=== PATIENT | male | born 1975 | race Hispanic/Latino ===

== ENCOUNTER 2018-07-14 09:06 | Emergency (ER) | payer BC ==
[~2018-07-14] VITALS: Ht 177.8 cm; Wt 104.3 kg
--- OUTSIDE RECORDS SUMMARY | 2018-07-14 09:10 | XMS REPORT | Summary of Care ---
Author Author [facility] Outpatient Imaging [facility] Outpatient [facility] Address Unknown Phone Unavailable Encounter [facility] [employer](FIN) [id number] Date(s): 05/13/16 - 05/13/16 [facility] Outpatient Imaging [address] [phone] Discharge Disposition: Home or Self Care Attending Physician: Radha Navas MD Vital Signs No data available for this section Problem List Condition Effective Dates Status Health Status Informant Morbid Active obesity(Confirmed) Sleep Active apnea(Confirmed) Allergies, Adverse Reactions, Alerts Substance Reaction Severity Status NKDA Active Medications No data available for this section Results No data available for this section Immunizations No data available for this section Procedures Procedure Date Related Diagnosis Body Site Tonsillectomy Social History Social History Type Response Alcohol Current, Frequency: 1-2 times per month. Previous treatment: None. Alcohol use interferes with work or home: No. Drinks more than intended: No. Others hurt by drinking: No. Ready to change: No. Household alcohol concerns: No. Smoking Status Never smoker; Exposure to Tobacco Smoke None; Cigarette Smoking Last 365 Days No; Reg Smoking Cessation Counseling No Assessment and Plan No data available for this section
--- OUTSIDE RECORDS SUMMARY | 2018-07-14 09:10 | XMS REPORT | Summary of Care ---
Author Author [facility] Organization [facility] Address Unknown Phone Unavailable Encounter THERESA Clark(DEVEN) [id number] Date(s): 02/07/15 - 02/07/[address] [address]- Discharge Disposition: Home Attending Physician: Jose Luis Lau MD Admitting Physician: Jose Luis Lau MD Referring Physician: Jose Luis Lau MD Vital Signs Most recent to 1 oldest [Reference Range]: Height 175.26 cm (02/07/15 1:02 PM) Most recent to 1 oldest [Reference Range]: Weight 186.364 kg (02/07/15 1:02 PM) Most recent to 1 oldest [Reference Range]: Body Mass Index 60.67 m2 (02/07/15 1:02 PM) Problem List No data available for this section Allergies, Adverse Reactions, Alerts Substance Reaction Severity Status NKDA Active Medications furosemide 40 mg oral tablet 40 mg=1 tab, PO, Daily, 0 Refill(s) Start Date: 02/07/15 Status: Ordered metFORMIN 500 mg, PO, Daily, 0 Refill(s) Start Date: 02/07/15 Status: Ordered potassium chloride 20 mEq oral tablet, extended release 20 mEq=1 tab, PO, Daily, 0 Refill(s) Start Date: 02/07/15 Status: Ordered Results ELECTROLYTES Most recent to 1 oldest [Reference Range]: POC Sodium [135-145 139 mEq/L mEq/L] (02/07/15 1:29 PM) POC Potassium 3.5 mEq/L [3.5-5.1 mEq/L] (02/07/15 1:29 PM) POC Chloride [95-109 91 mEq/L mEq/L] *LOW* (02/07/15 1:29 PM) POC Carbon Dioxide 34 mEq/dL [24-32 mEq/dL] *HI* (02/07/15 1:29 PM) POC AGAP [10.0-20.0 19.0 mEq/L mEq/L] (02/07/15 1:29 PM) CHEM PANEL Most recent to 1 oldest [Reference Range]: eGFR 128 mL/min/1.73m2 1 *NA* (02/07/15 1:29 PM) POC Creatinine 0.6 mg/dL [0.5-1.4 mg/dL] (02/07/15 1:29 PM) POC BUN [7-22 mg/dL] 9 mg/dL (02/07/15 1:29 PM) POC Glucose [70-99 83 mg/dL mg/dL] (02/07/15 1:29 PM) POC Ion Ca 1.20 mMol/L [1.05-1.25 mMol/L] (02/07/15 1:29 PM) 1Result Comment: The eGFR is calculated using the CKD-EPI formula. In most young, healthy individuals the eGFR will be >90 mL/min/1.73m2. The eGFR declines with age. An eGFR of 60-89 may be normal in some populations, particularly the elderly, for whom the CKD-EPI formula has not been extensively validated. Use of the eGFR is not recommended in the following populations: Individuals with unstable creatinine concentrations, including patients and those with serious co-morbid conditions. Patients with extremes in muscle mass or diet. The data above are obtained from the National Kidney Disease Education Program ( NKDEP) which additionally recommends that when the eGFR is used in patients with extremes of body mass index for purposes of drug dosing, the eGFR should be mul tiplied by the estimated BMI. HEMATOLOGY Most recent to 1 oldest [Reference Range]: POC Hemoglobin 19.7 g/dL [14.0-18.0 g/dL] *HI* (02/07/15 1:29 PM) POC Hematocrit 58.0 % [42.0-54.0 %] *HI* (02/07/15 1:29 PM) Immunizations No data available for this section Procedures No data available for this section Social History No data available for this section Assessment and Plan No data available for this section
--- OUTSIDE RECORDS SUMMARY | 2018-07-14 09:10 | XMS REPORT | Summary of Care ---
Author Author [facility] Organization [facility] Address Unknown Phone Unavailable Encounter THERESA Clark(DEVEN) [id number] Date(s): 05/13/16 - 05/13/[address] [address]- Discharge Disposition: Home or Self Care Attending Physician: Radha Navas MD Referring Physician: Radha Navas MD Vital Signs Most recent to 1 oldest [Reference Range]: Height 175.26 cm (05/13/16 2:10 PM) Weight 136.364 kg (05/13/16 2:10 PM) Body Mass Index 44.4 m2 (05/13/16 2:10 PM) Problem List Condition Effective Dates Status Health [...]
--- OUTSIDE RECORDS SUMMARY | 2018-07-14 09:10 | XMS REPORT | Summary of Care ---
Author Author [facility] Organization [facility] Address Unknown Phone Unavailable Encounter [facility] [employer](DEVEN) [id number] Date(s): 05/13/16 - 05/13/[address] [address]- Discharge Disposition: Home or Self Care Attending Physician: Radha Navas MD Admitting Physician: Radha Navas MD Vital Signs No [...]
--- OUTSIDE RECORDS SUMMARY | 2018-07-14 09:10 | XMS REPORT | Summary of Care ---
Author Author [facility] Organization [facility] Address Unknown Phone Unavailable Encounter THERESA Clark(DEVEN) [id number] Date(s): 03/18/16 - 03/19/[address] [address]- Discharge Disposition: Home or Self Care Attending Physician: Jose Luis Lau MD Admitting Physician: Jose Luis Lau MD Referring Physician: Jose Luis Lau MD Vital Signs 1 2 3 Most recent to oldest [Reference Range]: 172.72 cm (03/13/16 9:00 AM) Height 98.0 DegF (03/19/16 3:18 PM) 98.2 DegF (03/19/16 11:12 AM) 98.1 DegF (03/19/16 7:09 AM) Temperature Oral [96.4-99.1 DegF] 103/63 mmHg (03/19/16 3:18 PM) 98/60 mmHg (03/19/16 11:12 AM) 117/70 mmHg (03/19/16 7:09 AM) Blood Pressure [90-140/60-90 mmHg] 18 BRMIN (03/19/16 3:18 PM) 18 BRMIN (03/19/16 11:12 AM) 18 BRMIN (03/19/16 7:09 AM) Respiratory Rate [14-20 BRMIN] 66 bpm (03/19/16 3:18 PM) 71 bpm (03/19/16 11:12 AM) 71 bpm (03/19/16 7:09 AM) Peripheral Pulse Rate [60-100 bpm] 155.455 kg (03/13/16 9:00 AM) Weight 52.11 m2 (03/13/16 9:00 AM) Body Mass Index Problem List Condition Effective Dates Status Health Status Informant Morbid Active obesity(Confirmed) Sleep Active apnea(Confirmed) Allergies, Adverse Reactions, Alerts Substance Reaction Severity Status NKDA Active Medications acetaminophen (ANES) (ANES) Route: IV, Drug form: INJ, Start date: 03/18/16 11:44:00 CDT, Stop date: 6 12:44:00 CDT Start Date: 03/18/16 Stop Date: 03/18/16 Status: Completed Ancef 3 gm, 100 mL, Route: IVPB, Drug form: INJ, ONCALL, Start date: 03/17/16 22:00:00 CDT, Duration: 22 hr, Stop date: 03/18/16 19:59:00 CDT Notes: Same as: Ancef Start Date: 03/17/16 Stop Date: 03/18/16 Status: Completed ANES flumazenil 0.2 mg, 2 mL, Route: IVP, Drug form: INJ, PRN, Dosing Weight 155.455, kg, PRN Be nzodiazepine Reversal, Initial dose, Start date: 03/18/16 11:47:00 CDT, Duration : 30 day, Stop date: 04/17/16 10:46:00 UNDERCUTTER Notes: (Same as: Romazicon) Start Date: 03/18/16 Stop Date: 03/18/16 Status: Discontinued ANES hydrALAZINE 10 mg, 0.5 mL, Route: IVP, Drug form: INJ, Q20Min, Dosing Weight 155.455, kg, PA N Elevated BP, Start date: 03/18/16 11:47:00 CDT, Duration: 2 doses or times, St op date: Limited # of times Notes: (Same as: Apresoline)Push over 5 minutes Start Date: 03/18/16 Stop Date: 03/18/16 Status: Discontinued ANES HYDROmorphone 0.5 mg, 0.25 mL, Route: IVP, Drug form: INJ, Q5Min, Dosing Weight 155.455, kg, P RN Pain Score 7-10, Start date: 03/18/16 11:47:00 CDT, Duration: 4 doses or time s, Stop date: Limited # of times Notes: (Same as: Dilaudid) Start Date: 03/18/16 Stop Date: 03/18/16 Status: Completed ANES morphine Sulfate 4 mg, 1 mL, Route: IVP, Drug form: INJ, Q5Min, Dosing Weight 155.455, kg, PRN Pa in Score 7-10, Start date: 03/18/16 11:47:00 CDT, Duration: 3 doses or times, St op date: Limited # of times Notes: (Same as:MORPhine Sulfate) Start Date: 03/18/16 Stop Date: 03/18/16 Status: Discontinued ANES morphine Sulfate 2 mg, 1 mL, Route: IVP, Drug form: INJ, Q5Min, Dosing Weight 155.455, kg, PRN Pa in Score 4-6, Start date: 03/18/16 11:47:00 CDT, Duration: 5 doses or times, Sto p date: Limited # of times Notes: (Same as:MORPhine Sulfate) Start Date: 03/18/16 Stop Date: 03/18/16 Status: Discontinued ANES naloxone 0.4 mg, 1 mL, Route: IVP, Drug form: INJ, Q2MIN, Dosing Weight 155.455, kg, PRN Narcotic Reversal, Start date: 03/18/16 11:47:00 CDT, Duration: 8 doses or times , Stop date: Limited # of times Notes: Same as Narcan Start Date: 03/18/16 Stop Date: 03/18/16 Status: Discontinued ANES ondansetron 4 mg, 2 mL, Route: IVP, Drug form: INJ, ONCE, Dosing Weight 155.455, kg, PRN Tolu sea & Vomiting, Start date: 03/18/16 11:47:00 CDT Notes: (Same as: Jerardo) MEDICATION WASTE Product Size: 4 mgProduct Was yasmine: ___ mg Start Date: 03/18/16 Stop Date: 03/18/16 Status: Discontinued Beneprotein 7 gm pkt 2 pkt, Route: PO, Drug Form: PWDR, Dosing Weight 155.455, kg, TID-Before Meals, Routine, Start date: 03/18/16 18:36:00 CDT, Duration: 30 day, Stop date: 6 16:30:00 UNDERCUTTER Notes: (Same as: Beneprotein) Start Date: 03/18/16 Stop Date: 03/19/16 Status: Discontinued ceFAZolin (ANES) Route: IV, Drug form: INJ, ONCE, Stop date: 03/18/16 12:16:00 CDT Start Date: 03/18/16 Stop Date: 03/18/16 Status: Completed dexamethasone (ANES) Route: IV, Drug form: INJ, ONCE, Stop date: 03/18/16 12:16:00 CDT Start Date: 03/18/16 Stop Date: 03/18/16 Status: Completed Dilaudid 0.5 mg, 0.25 mL, Route: IV, Drug form: INJ, Q3H, Dosing Weight 155.455, kg, PRN Pain Score 7-10, Start date: 03/18/16 10:11:00 CDT, Duration: 30 day, Stop date: 04/17/16 10:10:00 UNDERCUTTER Notes: (Same as: Dilaudid) Start Date: 03/18/16 Stop Date: 03/19/16 Status: Discontinued enoxaparin 30 mg, 0.3 mL, Route: SUB-Q, Drug form: INJ, Q12H, Dosing Weight 155.455, kg, St art date: 03/18/16 11:00:00 CDT, Duration: 30 day, Stop date: 04/17/16 1:00:[address] Notes: (Same as: Lovenox) Start Date: 03/18/16 Stop Date: 03/19/16 Status: Discontinued enoxaparin 30 mg/0.3 mL subcutaneous solution 40 mg, SUB-Q, Q12H, Dispense quantity sufficient, X 14 day, # 28 syr, 0 Refill(s ) Start Date: 03/19/16 Stop Date: 04/02/16 Status: Ordered enoxaparin 40 mg/0.4 mL subcutaneous solution 40 mg, SUB-Q, Q12H, Dispense quantity sufficient, X 14 day, # 28 syr, 0 Refill(s ) Start Date: 03/19/16 Stop Date: 03/19/16 Status: Discontinued famotidine 20 mg, 1 tab, Route: PO, Drug form: TAB, Q12H, Dosing Weight 155.455, kg, Start date: 03/18/16 21:00:00 CDT, Stop date: 04/17/16 9:00:00 UNDERCUTTER Notes: (Same as: Pepcid) Start Date: 03/18/16 Stop Date: 03/19/16 Status: Discontinued fentaNYL (ANES) Route: IV, Drug form: INJ, ONCE, Stop date: 03/18/16 12:01:00 CDT Start Date: 03/18/16 Stop Date: 03/18/16 Status: Completed Gas-X Ultra Softgels 160 mg, 2 tab, Route: PO, Drug form: CHEWTAB, BID, Dosing Weight 155.455, kg, PA N Gas, Start date: 03/19/16 7:28:00 CDT, Duration: 30 day, Stop date: 04/18/16 7 :27:00 UNDERCUTTER Notes: (Same as: Mylicon) Start Date: 03/19/16 Stop Date: 03/19/16 Status: Discontinued Gas-X Ultra Softgels 180 mg, Route: PO, BID, Dosing Weight 155.455, kg, Start date: 03/19/16 9:00:00 CDT, Duration: 30 day, Stop date: 04/17/16 17:00:00 UNDERCUTTER Start Date: 03/19/16 Stop Date: 03/19/16 Status: Canceled glycopyrrolate (ANES) Route: IV, Drug form: INJ, ONCE, Stop date: 03/18/16 13:05:00 CDT Start Date: 03/18/16 Stop Date: 03/18/16 Status: Completed heparin 5,000 unit, Route: SUB-Q, ONCE, Dosing Weight 155.455, kg, Start date: 03/18/16 10:02:00 CDT, Stop date: 03/18/16 10:02:00 CDT Start Date: 03/18/16 Stop Date: 03/18/16 Status: Completed ketOROLAC 30 mg, 1 mL, Route: IVP, Drug form: INJ, Q6H, Dosing Weight 155.455, kg, Start d ate: 03/18/16 12:00:00 CDT, Duration: 8 doses or times, Stop date: 03/20/16 6:00 :00 CDT Notes: (Same as:Toradol) IV bolus must be given >15 seconds. Give IM administration slowly and deeply into the muscle.Not for use > 4 days MEDICATION WASTE Product Size: 30 mgProduct Wasted: ___ mg Start Date: 03/18/16 Stop Date: 03/18/16 Status: Deleted ketOROLAC 30 mg/mL injectable solution 30 mg, 1 mL, Route: IVP, Drug form: INJ, Q6Hnow, Dosing Weight 155.455, kg, Star t date: 03/18/16 21:00:00 CDT, Duration: 6 doses or times, Stop date: 03/20/16 3 :00:00 CDT Notes: (Same as:Toradol) IV bolus must be given >15 seconds. Give IM administration slowly and deeply into the muscle.Not for use > 4 days MEDICATION WASTE Product Size: 30 mgProduct Wasted: ___ mg Start Date: 03/18/16 Stop Date: 03/19/16 Status: Discontinued Lactated Ringers 1,000 mL 1,000 mL, Rate: 125 ml/hr, Infuse over: 8 hr, Route: IV, Dosing Weight 155.455 k g, Total Volume: 1,000, Start date: 03/18/16 10:11:00 CDT, Duration: 30 day, Sto p date: 04/17/16 10:10:00 UNDERCUTTER Start Date: 03/18/16 Stop Date: 03/19/16 Status: Discontinued Lactated Ringers 1,000 mL 1,000 mL, Rate: 125 ml/hr, Infuse over: 8 hr, Route: IV, Dosing Weight 155.455 k g, Total Volume: 1,000, Start date: 03/18/16 11:47:00 CDT, Duration: 30 day, Sto p date: 04/17/16 11:46:00 UNDERCUTTER Start Date: 03/18/16 Stop Date: 03/18/16 Status: Discontinued lidocaine (ANES) Route: IV, Drug form: INJ, ONCE, Stop date: 03/18/16 12:01:00 CDT Start Date: 03/18/16 Stop Date: 03/18/16 Status: Completed LR 1000 mL INJ (ANES) Route: IV, Total Volume: 1,000, Start date: 03/18/16 11:19:00 CDT, Stop date: 12:19:00 CDT Start Date: 03/18/16 Stop Date: 03/18/16 Status: Deleted LR 1000 mL INJ (ANES) Route: IV, Total Volume: 1,000, Start date: 03/18/16 11:19:00 CDT, Stop date: 12:19:00 CDT Start Date: 03/18/16 Stop Date: 03/18/16 Status: Completed metoprolol 5 mg, 5 mL, Route: IVP, Drug form: INJ, Q6H, Dosing Weight 155.455, kg, PRN Hype rtension, SBP > 170; DBP > 95, Start date: 03/18/16 10:11:00 CDT, Duration: 30 day, Stop date: 04/17/16 10:10:00 UNDERCUTTER Notes: (Same as: Lopressor)Push over 2 minutes Start Date: 03/18/16 Stop Date: 03/19/16 Status: Discontinued midazolam (ANES) Route: IV, Drug form: SOLN, ONCE, Stop date: 03/18/16 12:01:00 CDT Start Date: 03/18/16 Stop Date: 03/18/16 Status: Completed morphine Sulfate (ANES) Route: IV, Drug form: INJ, ONCE, Stop date: 03/18/16 12:51:00 CDT Start Date: 03/18/16 Stop Date: 03/18/16 Status: Completed neostigmine (ANES) Route: IV, Drug form: INJ, ONCE, Stop date: 03/18/16 13:05:00 CDT Start Date: 03/18/16 Stop Date: 03/18/16 Status: Completed Ofirmev 1,000 mg, 100 mL, Route: IV, Drug form: INJ, Q6H-02, Dosing Weight 155.455, kg, for > or=50 kg, Start date: 03/18/16 20:00:00 CDT, Duration: 4 doses or times, Stop date: 03/19/16 14:00:00 CDT Notes: Infuse over 15 minutesDo not exceed 4gm/day of acetaminophen MEDICAT ION WASTE Product Size: 1000 mgProduct Wasted: ___ mg Start Date: 03/18/16 Stop Date: 03/19/16 Status: Completed Ofirmev 1,000 mg, 100 mL, Route: IV, Drug form: INJ, Q6H-WA, Dosing Weight 155.455, kg, for > or=50 kg, Start date: 03/18/16 12:00:00 CDT, Duration: 4 doses or times, Stop date: 03/19/16 6:00:00 CDT Notes: Infuse over 15 minutesDo not exceed 4gm/day of acetaminophen MEDICAT ION WASTE Product Size: 1000 mgProduct Wasted: ___ mg Start Date: 03/18/16 Stop Date: 03/18/16 Status: Discontinued ondansetron 4 mg, 2 mL, Route: IVP, Drug form: INJ, Q6H, Dosing Weight 155.455, kg, PRN Naus ea & Vomiting, Start date: 03/18/16 10:11:00 CDT, Duration: 30 day, Stop date: 04/17/16 10:10:00 UNDERCUTTER Notes: (Same as: Jerardo) MEDICATION WASTE Product Size: 4 mgProduct Was yasmine: ___ mg Start Date: 03/18/16 Stop Date: 03/19/16 Status: Discontinued ondansetron (ANES) Route: IV, Drug form: INJ, ONCE, Stop date: 03/18/16 12:56:00 CDT Start Date: 03/18/16 Stop Date: 03/18/16 Status: Completed promethazine 12.5 mg, 0.5 mL, Route: IM, Drug form: INJ, Q4H, Dosing Weight 155.455, kg, PRN Nausea & Vomiting, Start date: 03/18/16 10:11:00 CDT, Duration: 30 day, Stop date: 04/17/16 10:10:00 UNDERCUTTER Start Date: 03/18/16 Stop Date: 03/19/16 Status: Discontinued propofol (ANES) Route: IV, Drug form: INJ, ONCE, Stop date: 03/18/16 12:01:00 CDT Start Date: 03/18/16 Stop Date: 03/18/16 Status: Completed rocuronium (ANES) Route: IV, Drug form: INJ, ONCE, Stop date: 03/18/16 12:01:00 CDT Start Date: 03/18/16 Stop Date: 03/18/16 Status: Completed succinylcholine (ANES) Route: IV, Drug form: INJ, ONCE, Stop date: 03/18/16 12:01:00 CDT Start Date: 03/18/16 Stop Date: 03/18/16 Status: Completed tramadol 50 mg oral tablet 50 mg=1 tab, PO, Q6H, PRN Pain Score 6-10, # 50 tab, 0 Refill(s) Start Date: 03/19/16 Stop Date: 04/09/16 Status: Ordered tramadol 50 mg oral tablet 50 mg, 1 tab, Route: PO, Drug form: TAB, Q6H, Dosing Weight 155.455, kg, PRN Oth er -See Comment, Start date: 03/18/16 10:11:00 CDT, Duration: 30 day, Stop date: 04/17/16 10:10:00 UNDERCUTTER, Pain Score 3-6 Start Date: 03/18/16 Stop Date: 03/19/16 Status: Discontinued Tylenol 650 mg, 2 tab, Route: PO, Drug form: TAB, Q6H-02, Dosing Weight 155.455, kg, Sta rt date: 03/19/16 20:00:00 CDT, Duration: 4 doses or times, Stop date: 03/20/16 14:00:00 CDT Notes: Do not exceed 4 gm/day. (Same as: Tylenol) Start Date: 03/19/16 Stop Date: 03/19/16 Status: Discontinued Tylenol 650 mg, 2 tab, Route: PO, Drug form: TAB, Q6H-02, Dosing Weight 155.455, kg, Sta rt date: 03/18/16 12:00:00 CDT, Duration: 4 doses or times, Stop date: 03/19/16 2:00:00 CDT Notes: Do not exceed 4 gm/day. (Same as: Tylenol) Start Date: 03/18/16 Stop Date: 03/18/16 Status: Discontinued Results BLOOD BANK RESULTS 1 2 3 Most recent to oldest [Reference Range]: A POS *Unknown* (03/13/16 9:34 AM) ABO/Rh Negative (03/13/16 9:34 AM) Antibody Scrn ELECTROLYTES 1 2 3 Most recent to oldest [Reference Range]: 136 mEq/L (03/19/16 3:42 AM) 140 mEq/L (03/13/16 9:34 AM) Sodium Lvl [135-145 mEq/L] 4.7 mEq/L (03/19/16 3:42 AM) 4.4 mEq/L (03/13/16 9:34 AM) Potassium Lvl [3.5-5.1 mEq/L] 95 mEq/L (03/19/16 3:42 AM) 100 mEq/L (03/13/16 9:34 AM) Chloride Lvl [95-109 mEq/L] 31 mEq/L (03/19/16 3:42 AM) 29 mEq/L (03/13/16 9:34 AM) CO2 [24-32 mEq/L] 14.7 mEq/L (03/19/16 3:42 AM) 15.4 mEq/L (03/13/16 9:34 AM) AGAP [10.0-20.0 mEq/L] CHEM PANEL 1 2 3 Most recent to oldest [Reference Range]: 0.79 mg/dL (03/19/16 3:42 AM) 0.75 mg/dL (03/13/16 9:34 AM) Creatinine Lvl [0.50-1.40 mg/dL] 114 mL/min/1.73m2 1 *NA* (03/19/16 3:42 AM) 116 mL/min/1.73m2 2 *NA* (03/13/16 9:34 AM) eGFR 15 mg/dL (03/19/16 3:42 AM) 14 mg/dL (03/13/16 9:34 AM) BUN [7-22 mg/dL] 19 (03/13/16 9:34 AM) B/C Ratio [6-25] 84 mg/dL (03/19/16 3:42 AM) 87 mg/dL (03/13/16 9:34 AM) Glucose Lvl [70-99 mg/dL] 7.7 g/dL (03/13/16 9:34 AM) Total Protein [6.4-8.4 g/dL] 3.4 g/dL *LOW* (03/13/16 9:34 AM) Albumin Lvl [3.5-5.0 g/dL] 4.3 g/dL *HI* (03/13/16 9:34 AM) Globulin [2.7-4.2 g/dL] 0.8 (03/13/16 9:34 AM) A/G Ratio [0.7-1.6] 8.7 mg/dL (03/19/16 3:42 AM) 9.2 mg/dL (03/13/16 9:34 AM) Calcium Lvl [8.5-10.5 mg/dL] 25 unit/L (03/13/16 9:34 AM) ALT [0-65 unit/L] 24 unit/L (03/13/16 9:34 AM) AST [0-37 unit/L] 74 unit/L (03/13/16 9:34 AM) Alk Phos [39-136 unit/L] 2.3 mg/dL *HI* (03/13/16 9:34 AM) Bili Total [0.2-1.3 mg/dL] 20 ng/mL *LOW* (03/13/16 9:34 AM) Vitamin D, 25-OH, Total [30-100 ng/mL] 1Result Comment: The eGFR is calculated using [...] be mul tiplied by the estimated BMI. 2Result Comment: The eGFR is calculated using the [...] be mul tiplied by the estimated BMI. SPECIAL CHEMISTRY 1 2 3 Most recent to oldest [Reference Range]: <7.0 % *HI* (03/13/16 9:34 AM) Hgb A1C [<=5.6 %] PARATHYROID PROFILE 1 2 3 Most recent to oldest [Reference Range]: 52.9 pg/mL (03/13/16 9:34 AM) PTH Intact [11.1-79.5 pg/mL] URINE AND STOOL 1 2 3 Most recent to oldest [Reference Range]: Clear (03/13/16 9:35 AM) UA Turbidity [Clear] Yellow *NA* (03/13/16 9:35 AM) UA Color [Yellow] 6.0 (03/13/16 9:35 AM) UA pH [5.0-8.0] 1.018 (03/13/16 9:35 AM) UA Spec Grav [<=1.030] Negative mg/dL *NA* (03/13/16 9:35 AM) UA Glucose [Negative mg/dL] Negative (03/13/16 9:35 AM) UA Blood [Negative] Trace mg/dL *ABN* (03/13/16 9:35 AM) UA Ketones [Negative mg/dL] Negative mg/dL (03/13/16 9:35 AM) UA Protein [Negative mg/dL] 2.0 mg/dL *HI* (03/13/16 9:35 AM) UA Urobilinogen [0.1-1.0 mg/dL] Negative *NA* (03/13/16 9:35 AM) UA Bili [Negative] Negative (03/13/16 9:35 AM) UA Leuk Est [Negative] Negative (03/13/16 9:35 AM) UA Nitrite [Negative] 1 /HPF (03/13/16 9:35 AM) UA WBC [0-5 /HPF] <1 /HPF (03/13/16 9:35 AM) UA RBC [0-2 /HPF] Few /LPF *NA* (03/13/16 9:35 AM) UA Mucus [None Seen /LPF] Not Indicated *NA* (03/13/16 9:35 AM) Micro? HEMATOLOGY 1 2 3 Most recent to oldest [Reference Range]: 6.0 K/CMM (03/19/16 3:42 AM) 4.6 K/CMM (03/18/16 8:32 AM) 4.7 K/CMM (03/13/16 9:34 AM) WBC [3.7-10.4 K/CMM] 7.18 M/CMM *HI* (03/19/16 3:42 AM) 7.60 M/CMM *HI* (03/18/16 8:32 AM) 7.58 M/CMM *HI* (03/13/16 9:34 AM) RBC [4.70-6.10 M/CMM] 19.0 g/dL *HI* (03/19/16 3:42 AM) 20.1 g/dL 1 *CRIT* (03/18/16 8:32 AM) 20.2 g/dL 2 *CRIT* (03/13/16 9:34 AM) Hgb [14.0-18.0 g/dL] 62.5 % 3 *CRIT* (03/19/16 3:42 AM) 64.6 % *CRIT* (03/18/16 8:32 AM) 65.2 % *CRIT* (03/13/16 9:34 AM) Hct [42.0-54.0 %] 87.0 fL (03/19/16 3:42 AM) 84.9 fL (03/18/16 8:32 AM) 85.9 fL (03/13/16 9:34 AM) MCV [80.0-94.0 fL] 26.4 pg *LOW* (03/19/16 3:42 AM) 26.5 pg *LOW* (03/18/16 8:32 AM) 26.6 pg *LOW* (03/13/16 9:34 AM) MCH [27.0-31.0 pg] 30.4 g/dL *LOW* (03/19/16 3:42 AM) 31.2 g/dL *LOW* (03/18/16 8:32 AM) 31.0 g/dL *LOW* (03/13/16 9:34 AM) MCHC [32.0-36.0 g/dL] 19.0 % *HI* (03/19/16 3:42 AM) 18.7 % *HI* (03/18/16 8:32 AM) 19.3 % *HI* (03/13/16 9:34 AM) RDW [11.5-14.5 %] 188 K/CMM (03/19/16 3:42 AM) 163 K/CMM (03/18/16 8:32 AM) 167 K/CMM (03/13/16 9:34 AM) Platelet [133-450 K/CMM] 8.3 fL (03/19/16 3:42 AM) 8.8 fL (03/18/16 8:32 AM) 7.4 fL (03/13/16 9:34 AM) MPV [7.4-10.4 fL] 84.0 % *HI* (03/19/16 3:42 AM) 71.5 % (03/18/16 8:32 AM) 71.1 % (03/13/16 9:34 AM) Segs [45.0-75.0 %] 0.0 % (03/19/16 3:42 AM) Bands [0.0-11.0 %] 9.0 % *LOW* (03/19/16 3:42 AM) 19.1 % *LOW* (03/18/16 8:32 AM) 19.2 % *LOW* (03/13/16 9:34 AM) Lymphocytes [20.0-40.0 %] 0.0 % (03/19/16 3:42 AM) Atypical Lymphs [<=0.0 %] 7.0 % (03/19/16 3:42 AM) 8.3 % (03/18/16 8:32 AM) 8.7 % (03/13/16 9:34 AM) Monocytes [2.0-12.0 %] 0.8 % (03/18/16 8:32 AM) 0.8 % (03/13/16 9:34 AM) Eosinophils [0.0-4.0 %] 0.3 % (03/18/16 8:32 AM) 0.2 % (03/13/16 9:34 AM) Basophils [0.0-1.0 %] 5.0 K/CMM (03/19/16 3:42 AM) 3.3 K/CMM (03/18/16 8:32 AM) 3.3 K/CMM (03/13/16 9:34 AM) Segs-Bands # [1.5-8.1 K/CMM] 0.5 K/CMM *LOW* (03/19/16 3:42 AM) 0.9 K/CMM *LOW* (03/18/16 8:32 AM) 0.9 K/CMM *LOW* (03/13/16 9:34 AM) Lymphocytes # [1.0-5.5 K/CMM] 0.4 K/CMM (03/19/16 3:42 AM) 0.4 K/CMM (03/18/16 8:32 AM) 0.4 K/CMM (03/13/16 9:34 AM) Monocytes # [0.0-0.8 K/CMM] Normal (03/19/16 3:42 AM) Normal (03/18/16 8:32 AM) Normal (03/13/16 9:34 AM) RBC Morph Normal (03/19/16 3:42 AM) Normal (03/18/16 8:32 AM) Normal (03/13/16 9:34 AM) Plt Morph 1Result Comment: Critical Result(s) called to YUDY GIRARD at 03/18/2016 09:00 by SKR. Read back OK. 2Result Comment: Critical Result(s) called to EVELYN MCKEON at 03/13/2016 09:58_ by_YM. Read back OK. 3Result Comment: Critical Result(s) called to CRISTOFER GILBERT at 03/19/2016 06:50 byCB. Read back OK. Immunizations No data available for this section [...] Smoking Cessation Counseling No Assessment and Plan Extracted from: Title: Surgery Author: Cami Fairbanks MD Date: 03/19/16 [facility] Progress Note Subjective: No issues overnight. Kristian liquids. Some gas discomfort. Ambulating. Objective: VitalsTmp(F)[id number] 03/19 07:[id number]--- 03/19 04:[id number]--- 03/19 00:0097.729106/6118------ 03/18 22:45----[id number]------ 03/18 21:45----[id number]------ 24 Hr Tmax: 98.6F (37.00c) at 03/18 15:30Vital Signs are the last 5 in the past 48 hours. I&ORecordInOutBal 02/1924hr Tot [id number] 02/1824hr Tot 0 0 0 Medications (26) Active Scheduled Meds (6): 03/18/16 acetaminophen (Ofirmev) 1,000 mg IV Q6H-02 400 ml/hr 03/19/16 acetaminophen (Tylenol) 650 mg PO Q6H-02 03/18/16 enoxaparin 30 mg SUB-Q Q12H 03/18/16 famotidine 20 mg IVP Q12H 03/18/16 ketOROLAC (ketOROLAC 30 mg/mL injectable solution) 30 mg IVP Q6Hnow 03/18/16 nutritional supplement (Beneprotein 7 gm pkt) 2 pkt PO TID-Before Meals Unscheduled Meds: None PRN Meds (6): 03/18/16 hydromorphone (Dilaudid) 0.5 mg IV Q3H 03/18/16 metoprolol 5 mg IVP Q6H 03/18/16 ondansetron 4 mg IVP Q6H 03/18/16 promethazine 12.5 mg IM Q4H 03/19/16 simethicone (Gas-X Ultra Softgels) 160 mg PO BID 03/18/16 tramadol (tramadol 50 mg oral tablet) 50 mg PO Q6H One Time Meds (13): (Completed) ceFAZolin (ceFAZolin (ANES)) IV ONCE (Completed) dexamethasone (dexamethasone (ANES)) IV ONCE (Completed) fentaNYL (fentaNYL (ANES)) IV ONCE (Completed) glycopyrrolate (glycopyrrolate (ANES)) IV ONCE 03/18/16 (Completed) heparin 5,000 unit SUB-Q ONCE (Completed) lidocaine (lidocaine (ANES)) IV ONCE (Completed) midazolam (midazolam (ANES)) IV ONCE (Completed) morphine Sulfate (morphine Sulfate (ANES)) IV ONCE (Completed) neostigmine (neostigmine (ANES)) IV ONCE (Completed) ondansetron (ondansetron (ANES)) IV ONCE (Completed) propofol (propofol (ANES)) IV ONCE (Completed) rocuronium (rocuronium (ANES)) IV ONCE (Completed) succinylcholine (succinylcholine (ANES)) IV ONCE Continuous Infusions (1): 03/18/16 Lactated Ringers 1,000 mL 1,000 mL 125 ml/hr Physical Exam: Gen - NAD CV - Regular Resp - Clear b/l Abd - Soft, ND, appropriately TTP. Incisions c/d/i Ext - No c/c/e Assessment and Plan: 40yo male POD1 s/p lap sleeve - Bariatric full liquids diet - PO pain meds - OOB, ambulate, Lovenox and SCDs - Okay for home later today on PO pain meds and 2 weeks ppx lovenox if kristian fulls and cleared by staff Addendum No events. Tolerating diet. Pain controlled. Ambualting well. Cont protocol. by Jose Luis Lau MD on 03/19/2016 08:32
--- OUTSIDE RECORDS SUMMARY | 2018-07-14 09:10 | XMS REPORT | Summary of Care ---
Author Author [facility] Organization [facility] Address Unknown Phone Unavailable Encounter [facility] [employer](FIN) [id number] Date(s): 05/18/16 - 05/18/16 [facility] [address] [place] [address]- [phone] Discharge Disposition: Home or Self Care Attending [...]
--- OUTSIDE RECORDS SUMMARY | 2018-07-14 09:10 | XMS REPORT | Continuity of Care Document ---
Author Author [facility] Interface Address Unknown Phone Unavailable Problems Problem Status Onset Date Classification Date Reported Comments Source EKG Active 05/13/2016 [facility] R06.02 Active 05/06/2016 [facility] 75403, MORBID OBESITY Active 03/03/2016 [facility] 16544, MORBID OBESITY Active 03/26/2015 [facility] ANEMIA DIARRHEA Active 01/16/2015 [facility] Morbid obesity Active Problem 05/21/2016 [facility] Sleep apnea Active Problem 05/21/2016 [facility] Morbid obesity Active Problem 05/16/2016 [facility] Sleep apnea Active Problem 05/16/2016 [facility] ILLNESS, UNSPECIFIED Active [facility] Medications Medication Details Route Status Patient Instructions Ordering Provider Order Date Source Tylenol 650 mg, 2 tab, Route: PO, Drug form: TAB, Q6H-02, Dosing Weight 155.455, kg, Start date: 03/19/16 20:00:00 CDT, Duration: 4 doses or times, Stop date: 03/20/16 14:00:00 CDTNotes: Do not exceed 4 gm/day. (Same as: Tylenol) Inactive 03/20/2016 [facility] Gas-X Ultra Softgels 180 mg, Route: PO, BID, Dosing Weight 155.455, kg, Start date: 03/19/16 9:00:00 CDT, Duration: 30 day, Stop date: 04/17/16 17:00:00 [employer]HALATION [employer]ER[employer]ER Inactive 03/19/2016 [facility] enoxaparin 30 mg/0.3 mL subcutaneous solution 40 mg, SUB- Q, Q12H, Dispense quantity sufficient, X 14 day, # 28 syr, 0 Refill(s) Active 03/19/2016 [facility] enoxaparin 40 mg/0.4 mL subcutaneous solution 40 mg, SUB- Q, Q12H, Dispense quantity sufficient, X 14 day, # 28 syr, 0 Refill(s) Inactive 03/19/2016 [facility] tramadol hydrochloride 50 MG Oral Tablet 50 mg=1 tab, PO, Q6H, PRN Pain Score 6-10, # 50 tab, 0 Refill(s) Active 03/19/2016 [facility] Gas-X Ultra Softgels 160 mg, 2 tab, Route: PO, Drug form: CHEWTAB, BID, Dosing Weight 155.455, kg, PRN Gas, Start date: 03/19/16 7:28:00 CDT, Duration: 30 day, Stop date: 04/18/16 7:27:00 CSTNotes: (Same as: Mylicon) Inactive 03/19/2016 [facility] Famotidine 20 mg, 1 tab, Route: PO, Drug form: TAB, Q12H, Dosing Weight 155.455, kg, Start date: 03/18/16 21:00:00 CDT, Stop date: 04/17/16 9:00:00 CSTNotes: (Same as: Pepcid) No Longer Active 03/19/2016 [facility] ketOROLAC 30 mg/mL injectable solution 30 mg, 1 mL, Route: IVP, Drug form: INJ, Q6Hnow, Dosing Weight 155.455, kg, Start date: 03/18/16 21:00:00 CDT, Duration: 6 doses or times, Stop date: 03/20/16 3:00:00 CDTNotes: (Same as:Toradol) IV bolus must be given >15 seconds. Give IM administration slowly and deeply into the muscle. Not for use > 4 days MEDICATION WASTE Product Size: 30 mg Product Wasted: ___ mg No Longer Active 03/19/2016 [facility] Ofirmev 1,000 mg, 100 mL, Route: IV, Drug form: INJ, Q6H- 02, Dosing Weight 155.455, kg, for > or=50 kg, Start date: 03/18/16 20:00:00 CDT, Duration: 4 doses or times, Stop date: 03/19/16 14:00:00 CDTNotes: Infuse over 15 minutes Do not exceed 4gm/day of acetaminophen MEDICATION WASTE Product Size: 1000 mg Product Wasted: ___ mg No Longer Active 03/19/2016 [facility] Beneprotein 7 gm pkt 2 pkt, Route: PO, Drug Form: PWDR, Dosing Weight 155.455, kg, TID-Before Meals, Routine, Start date: 03/18/16 18:36:00 CDT, Duration: 30 day, Stop date: 04/17/16 16:30:00 CSTNotes: (Same as: Beneprotein) No Longer Active 03/18/2016 [facility] glycopyrrolate (ANES) Route: IV, Drug form: INJ, ONCE, Stop date: 03/18/16 13:05:00 CDT Inactive 03/18/2016 [facility] neostigmine (ANES) Route: IV, Drug form: INJ, ONCE, Stop date: 03/18/16 13:05:00 CDT Inactive 03/18/2016 [facility] ondansetron (ANES) Route: IV, Drug form: INJ, ONCE, Stop date: 03/18/16 12:56:00 CDT Inactive 03/18/2016 [facility] morphine Sulfate (ANES) Route: IV, Drug form: INJ, ONCE, Stop date: 03/18/16 12:51:00 CDT Inactive 03/18/2016 [facility] dexamethasone (ANES) Route: IV, Drug form: INJ, ONCE, Stop date: 03/18/16 12:16:00 CDT Inactive 03/18/2016 [facility] ceFAZolin (ANES) Route: IV, Drug form: INJ, ONCE, Stop date: 03/18/16 12:16:00 CDT Inactive 03/18/2016 [facility] succinylcholine (ANES) Route: IV, Drug form: INJ, ONCE, Stop date: 03/18/16 12:01:00 CDT Inactive 03/18/2016 [facility] midazolam (ANES) Route: IV, Drug form: SOLN, ONCE, Stop date: 03/18/16 12:01:00 CDT Inactive 03/18/2016 [facility] propofol (ANES) Route: IV, Drug form: INJ, ONCE, Stop date: 03/18/16 12:01:00 CDT Inactive 03/18/2016 [facility] lidocaine (ANES) Route: IV, Drug form: INJ, ONCE, Stop date: 03/18/16 12:01:00 CDT Inactive 03/18/2016 [facility] rocuronium (ANES) Route: IV, Drug form: INJ, ONCE, Stop date: 03/18/16 12:01:00 CDT Inactive 03/18/2016 [facility] fentaNYL (ANES) Route: IV, Drug form: INJ, ONCE, Stop date: 03/18/16 12:01:00 CDT Inactive 03/18/2016 [facility] Ofirmev 1,000 mg, 100 mL, Route: IV, Drug form: INJ, Q6H- WA, Dosing Weight 155.455, kg, for > or=50 kg, Start date: 03/18/16 12:00:00 CDT, Duration: 4 doses or times, Stop date: 03/19/16 6:00:00 CDTNotes: Infuse over 15 minutes Do not exceed 4gm/day of acetaminophen MEDICATION WASTE Product Size: 1000 mg Product Wasted: ___ mg Inactive 03/18/2016 [facility] Tylenol 650 mg, 2 tab, Route: PO, Drug form: TAB, Q6H-02, Dosing Weight 155.455, kg, Start date: 03/18/16 12:00:00 CDT, Duration: 4 doses or times, Stop date: 03/19/16 2:00:00 CDTNotes: Do not exceed 4 gm/day. (Same as: Tylenol) Inactive 03/18/2016 [facility] Ketorolac 30 mg, 1 mL, Route: IVP, Drug form: INJ, Q6H, Dosing Weight 155.455, kg, Start date: 03/18/16 12:00:00 CDT, Duration: 8 doses or times, Stop date: 03/20/16 6:00:00 CDTNotes: (Same as:Toradol) IV bolus must be given >15 seconds. Give IM administration slowly and deeply into the muscle. Not for use > 4 days MEDICATION WASTE Product Size: 30 mg Product Wasted: ___ mg Inactive 03/18/2016 [facility] Calcium Chloride 0.0014 MEQ/ML / Potassium Chloride 0.004 MEQ/ML / Sodium Chloride 0.103 MEQ/ML / Sodium Lactate 0.028 MEQ/ML Injectable Solution 1,000 mL, Rate: 125 ml/hr, Infuse over: 8 hr, Route: IV, Dosing Weight 155.455 kg, Total Volume: 1,000, Start date: 03/18/16 11:47:00 CDT, Duration: 30 day, Stop date: 04/17/16 11:46:00 [employer]HALATION [employer]ER[employer]ER Inactive 03/18/2016 [facility] Hydralazine 10 mg, 0.5 mL, Route: IVP, Drug form: INJ, Q20Min, Dosing Weight 155.455, kg, PRN Elevated BP, Start date: 03/18/16 11:47:00 CDT, Duration: 2 doses or times, Stop date: Limited # of timesNotes: (Same as: Apresoline) Push over 5 minutes Inactive 03/18/2016 [facility] Morphine 4 mg, 1 mL, Route: IVP, Drug form: INJ, Q5Min, Dosing Weight 155.455, kg, PRN Pain Score 7-10, Start date: 03/18/16 11:47:00 CDT, Duration: 3 doses or times, Stop date: Limited # of timesNotes: (Same as:MORPhine Sulfate) Inactive 03/18/2016 [facility] Flumazenil 0.2 mg, 2 mL, Route: IVP, Drug form: INJ, PRN, Dosing Weight 155.455, kg, PRN Benzodiazepine Reversal, Initial dose, Start date: 03/18/16 11:47:00 CDT, Duration: 30 day, Stop date: 04/17/16 10:46:00 CSTNotes: (Same as: Romazicon) Inactive 03/18/2016 [facility] Hydromorphone 0.5 mg, 0.25 mL, Route: IVP, Drug form: INJ, Q5Min, Dosing Weight 155.455, kg, PRN Pain Score 7-10, Start date: 03/18/16 11:47:00 CDT, Duration: 4 doses or times, Stop date: Limited # of timesNotes: (Same as: Dilaudid) Inactive 03/18/2016 [facility] Ondansetron 4 mg, 2 mL, Route: IVP, Drug form: INJ, ONCE, Dosing Weight 155.455, kg, PRN Nausea & Vomiting, Start date: 03/18/16 11:47:00 CDTNotes: (Same as: Zofran) MEDICATION WASTE Product Size: 4 mg Product Wasted: ___ mg Inactive 03/18/2016 [facility] Naloxone 0.4 mg, 1 mL, Route: IVP, Drug form: INJ, Q2MIN, Dosing Weight 155.455, kg, PRN Narcotic Reversal, Start date: 03/18/16 11:47:00 CDT, Duration: 8 doses or times, Stop date: Limited # of timesNotes: Same as Narcan Inactive 03/18/2016 [facility] acetaminophen (ANES) (ANES) Route: IV, Drug form: INJ, Start date: 03/18/16 11:44:00 CDT, Stop date: 03/18/16 12:44:00 CDT Inactive 03/18/2016 [facility] LR 1000 mL INJ (ANES) Route: IV, Total Volume: 1,000, Start date: 03/18/16 11:19:00 CDT, Stop date: 03/18/16 12:19:00 CDT Inactive 03/18/2016 [facility] Enoxaparin 30 mg, 0.3 mL, Route: SUB-Q, Drug form: INJ, Q12H, Dosing Weight 155.455, kg, Start date: 03/18/16 11:00:00 CDT, Duration: 30 day, Stop date: 04/17/16 1:00:00 CSTNotes: (Same as: Lovenox) No Longer Active 03/18/2016 [facility] tramadol hydrochloride 50 MG Oral Tablet 50 mg, 1 tab, Route: PO, Drug form: TAB, Q6H, Dosing Weight 155.455, kg, PRN Other -See Comment, Start date: 03/18/16 10:11:00 CDT, Duration: 30 day, Stop date: 04/17/16 10:10:00 [employer]HALATION [employer]ERAPY [employer]ER, Pain Score 3-6 No Longer Active 03/18/2016 [facility] Dilaudid 0.5 mg, 0.25 mL, Route: IV, Drug form: INJ, Q3H, Dosing Weight 155.455, kg, PRN Pain Score 7-10, Start date: 03/18/16 10:11:00 CDT, Duration: 30 day, Stop date: 04/17/16 10:10:00 CSTNotes: (Same as: Dilaudid) No Longer Active 03/18/2016 [facility] Metoprolol 5 mg, 5 mL, Route: IVP, Drug form: INJ, Q6H, Dosing Weight 155.455, kg, PRN Hypertension, SBP > 170; DBP > 95, Start date: 03/18/16 10:11:00 CDT, Duration: 30 day, Stop date: 04/17/16 10:10:00 CSTNotes: (Same as: Lopressor) Push over 2 minutes No Longer Active 03/18/2016 [facility] Promethazine 12.5 mg, 0.5 mL, Route: IM, Drug form: INJ, Q4H, Dosing Weight 155.455, kg, PRN Nausea & Vomiting, Start date: 03/18/16 10:11:00 CDT, Duration: 30 day, Stop date: 04/17/16 10:10:00 INHALATION THERAPY TE[employer]ER No Longer Active 03/18/2016 [facility] Ondansetron 4 mg, 2 mL, Route: IVP, Drug form: INJ, Q6H, Dosing Weight 155.455, kg, PRN Nausea & Vomiting, Start date: 03/18/16 10:11:00 CDT, Duration: 30 day, Stop date: 04/17/16 10:10:00 CSTNotes: (Same as: Jerardo) MEDICATION WASTE Product Size: 4 mg Product Wasted: ___ mg No Longer Active 03/18/2016 [facility] Calcium Chloride 0.0014 MEQ/ML / Potassium Chloride 0.004 MEQ/ML / Sodium Chloride 0.103 MEQ/ML / Sodium Lactate 0.028 MEQ/ML Injectable Solution 1,000 mL, Rate: 125 ml/hr, Infuse over: 8 hr, Route: IV, Dosing Weight 155.455 kg, Total Volume: 1,000, Start date: 03/18/16 10:11:00 CDT, Duration: 30 day, Stop date: 04/17/16 10:10:00 INHALATION THERAPY TE[employer]ER No Longer Active 03/18/2016 [facility] heparin 5,000 unit, Route: SUB-Q, ONCE, Dosing Weight 155.455, kg, Start date: 03/18/16 10:02:00 CDT, Stop date: 03/18/16 10:02:00 CDT Inactive 03/18/2016 [facility] Ancef 3 gm, 100 mL, Route: IVPB, Drug form: INJ, ONCALL, Start date: 03/17/16 22:00:00 CDT, Duration: 22 hr, Stop date: 03/18/16 19:59:00 CDTNotes: Same as: Ancef No Longer Active 03/18/2016 [facility] Potassium Chloride 20 MEQ Extended Release Tablet 20 mEq=1 tab, PO, Daily, 0 Refill(s) Active 02/07/2015 [facility] Metformin 500 mg, PO, Daily, 0 Refill(s) Active 02/07/2015 [facility] Furosemide 40 MG Oral Tablet 40 mg=1 tab, PO, Daily, 0 Refill(s) Active 02/07/2015 [facility] Allergies, Adverse Reactions, Alerts Substance Category Reaction Severity Reaction type Status Date Reported Comments Source Immunizations Immunization Date Given Site Status Last Updated Comments Source Results Order Name Results Value Reference Range Date Interpretation Comments Source Chest 2 views DX Chest 2 views DX STUDY: Chest, 2 views. COMPARISON: 05/13/2016 HISTORY: R06.02 Shortness of breath. FINDINGS: The lungs are clear. No dense focal consolidation is seen. No pleural effusion or pneumothorax is seen. The heart is normal in size. The osseous structures are unremarkable. IMPRESSION: No acute cardiopulmonary process. 05/18/2016 - - Read by: Iman Mathews MD Dictated Date/time: 05/18/16 09:30 Electronically Signed by: Iman Mathews MD 05/18/16 09:31 FINAL REPORT [facility] Abdomen complete US Abdomen complete US STUDY: Abdominal ultrasound. COMPARISON:None HISTORY: R16.1 Splenomegaly, not elsewhere classified FINDINGS: Ultrasound imaging of the abdomen was performed. The liver is normal in echogenicity. No focal liver mass is seen. No intrahepatic biliary tract dilatation is seen. The main portal venous flow is hepatopedal direction. The visualized pancreas is within normal limits. The abdominal aorta is normal in caliber. The IVC is patent. The gallbladder is not seen, likely contracted which limits evaluation. The sonographic Rose's sign is reported to be negative. The common bile duct is normal in caliber measuring 3.5 mm. The kidneys are normal in echogenicity. The right kidney measures 12.0 cm in length. The left kidney measures 13.3 cm in length. No hydronephrosis or echogenic shadowing renal stones is seen. 1.6 cm simple cyst is seen in the left kidney. The spleen is enlarged measuring 14.5 cm in length. IMPRESSION: 1. Nonvisualization of gallbladder, likely contracted which limits evaluation. 2. Splenomegaly. 05/18/2016 - - Read by: Iman Mathews MD Dictated Date/time: 05/18/16 10:25 Electronically Signed by: Iman Mathews MD 05/18/16 10:28 [facility] [place] Chest 2 views DX Chest 2 views DX CLINICAL HISTORY: R06.02 Shortness of breath. : 1975. TECHNIQUE: PA and lateral views of the chest. Comparison: 03/13/2016. Heart size: Normal. Lungs: No acute consolidation. Pleura: No pleural effusion. Mediastinum and raysa: Unremarkable. Musculoskeletal: Unremarkable. IMPRESSION: 1. No active disease in the chest. 05/13/2016 - - Read by: Pako Cali MD Dictated Date/time: 05/13/16 16:19 Electronically Signed by: Pako Cali MD 05/13/16 16:19 FINAL REPORT [facility] ELECTROLYTES CO2 31 meq/L 24 - 32 03/19/2016 [facility] ELECTROLYTES Calcium Lvl 8.7 mg/dL 8.5 - 10.5 03/19/2016 [facility] ELECTROLYTES BUN 15 mg/dL 7 - 22 03/19/2016 [facility] ELECTROLYTES Glucose Lvl 84 mg/dL 70 - 99 03/19/2016 [facility] ELECTROLYTES Sodium Lvl 136 meq/L 135 - 145 03/19/2016 [facility] ELECTROLYTES Potassium Lvl 4.7 meq/L 3.5 - 5.1 03/19/2016 [facility] ELECTROLYTES Chloride Lvl 95 meq/L 95 - 109 03/19/2016 [facility] ELECTROLYTES Creatinine Lvl 0.79 mg/dL 0.50 - 1.40 03/19/2016 [facility] ELECTROLYTES eGFR 114 mL/min/1.73m2 03/19/2016 Result Comment: The eGFR is calculated using the [...] from the National Kidney Disease Education Program (NKDEP) which additionally recommends that when the eGFR is used in patients with extremes of body mass index for purposes of drug dosing, the eGFR should be multiplied by the estimated BMI. [facility] ELECTROLYTES AGAP 14.7 meq/L 10.0 - 20.0 03/19/2016 [facility] HEMATOLOGY Lymphocytes 9.0 % 20.0 - 40.0 03/19/2016 [facility] HEMATOLOGY Monocytes 7.0 % 2.0 - 12.0 03/19/2016 [facility] HEMATOLOGY Atypical Lymphs 0.0 % <=0.0 % 03/19/2016 [facility] HEMATOLOGY RBC Morph Normal (03/19/16 3:42 AM) 03/19/2016 [facility] HEMATOLOGY Plt Morph Normal (03/19/16 3:42 AM) 03/19/2016 [facility] HEMATOLOGY Lymphocytes # 0.5 K/CMM 1.0 - 5.5 03/19/2016 [facility] HEMATOLOGY Monocytes # 0.4 K/CMM 0.0 - 0.8 03/19/2016 [facility] HEMATOLOGY Segs 84.0 % 45.0 - 75.0 03/19/2016 [facility] HEMATOLOGY Bands 0.0 % 0.0 - 11.0 03/19/2016 [facility] Segs-Bands # 5.0 K/CMM 1.5 - 8.1 03/19/2016 [facility] HEMATOLOGY MPV 8.3 fL 7.4 - 10.4 03/19/2016 [facility] HEMATOLOGY RDW 19.0 % 11.5 - 14.5 03/19/2016 [facility] HEMATOLOGY Platelet 188 K/CMM 133 - 450 03/19/2016 [facility] MCHC 30.4 g/dL 32.0 - 36.0 03/19/2016 [facility] HEMATOLOGY MCV 87.0 fL 80.0 - 94.0 03/19/2016 [facility] MCH 26.4 pg 27.0 - 31.0 03/19/2016 [facility] HEMATOLOGY Hct 62.5 % 42.0 - 54.0 03/19/2016 Result Comment: Critical Result(s) called to CRISTOFER GILBERT at 03/19/2016 06:50 byCB. Read back OK. [facility] HEMATOLOGY Hgb 19.0 g/dL 14.0 - 18.0 03/19/2016 [facility] HEMATOLOGY WBC 6.0 K/CMM 3.7 - 10.4 03/19/2016 [facility] HEMATOLOGY RBC 7.18 M/CMM 4.70 - 6.10 03/19/2016 [facility] HEMATOLOGY Lymphocytes # 0.9 K/CMM 1.0 - 5.5 03/18/2016 [facility] HEMATOLOGY Segs-Bands # 3.3 K/CMM 1.5 - 8.1 03/18/2016 [facility] HEMATOLOGY Monocytes # 0.4 K/CMM 0.0 - 0.8 03/18/2016 [facility] HEMATOLOGY Basophils 0.3 % 0.0 - 1.0 03/18/2016 [facility] HEMATOLOGY Eosinophils 0.8 % 0.0 - 4.0 03/18/2016 [facility] HEMATOLOGY Monocytes 8.3 % 2.0 - 12.0 03/18/2016 [facility] HEMATOLOGY Segs 71.5 % 45.0 - 75.0 03/18/2016 [facility] Lymphocytes 19.1 % 20.0 - 40.0 03/18/2016 [facility] RBC Morph Normal (03/18/16 8:32 AM) 03/18/2016 [facility] Plt Morph Normal (03/18/16 8:32 AM) 03/18/2016 [facility] HEMATOLOGY RDW 18.7 % 11.5 - 14.5 03/18/2016 [facility] HEMATOLOGY MCHC 31.2 g/dL 32.0 - 36.0 03/18/2016 [facility] HEMATOLOGY MCV 84.9 fL 80.0 - 94.0 03/18/2016 [facility] HEMATOLOGY Hct 64.6 % 42.0 - 54.0 03/18/2016 [facility] HEMATOLOGY RBC 7.60 M/CMM 4.70 - 6.10 03/18/2016 [facility] HEMATOLOGY MPV 8.8 fL 7.4 - 10.4 03/18/2016 [facility] HEMATOLOGY Platelet 163 K/CMM 133 - 450 03/18/2016 [facility] HEMATOLOGY MCH 26.5 pg 27.0 - 31.0 03/18/2016 [facility] HEMATOLOGY WBC 4.6 K/CMM 3.7 - 10.4 03/18/2016 [facility] HEMATOLOGY Hgb 20.1 g/dL 14.0 - 18.0 03/18/2016 Result Comment: Critical Result(s) called to YUDY GIRARD at 03/18/2016 09:00 by SKR. Read back OK. [facility] URINE AND STOOL Micro? Not Indicated *NA* (03/13/16 9:35 AM) 03/13/2016 [facility] URINE AND STOOL UA Glucose Negative mg/dL Negative mg/dL 03/13/2016 [facility] URINE AND STOOL UA Ketones Trace mg/dL Negative mg/dL 03/13/2016 [facility] URINE AND STOOL UA Protein Negative mg/dL Negative mg/dL 03/13/2016 [facility] URINE AND STOOL UA Bili Negative *NA* (03/13/16 9:35 AM) Negative 03/13/2016 [facility] URINE AND STOOL UA pH 6.0 5.0 - 8.0 03/13/2016 [facility] URINE AND STOOL UA Leuk Est Negative (03/13/16 9:35 AM) Negative 03/13/2016 [facility] URINE AND STOOL UA WBC 1 /HPF 0 - 5 03/13/2016 [facility] URINE AND STOOL UA Urobilinogen 2.0 mg/dL 0.1 - 1.0 03/13/2016 [facility] URINE AND STOOL UA Blood Negative (03/13/16 9:35 AM) Negative 03/13/2016 [facility] URINE AND STOOL UA Nitrite Negative (03/13/16 9:35 AM) Negative 03/13/2016 [facility] URINE AND STOOL UA Mucus Few /LPF None Seen /LPF 03/13/2016 [facility] URINE AND STOOL UA RBC null 0 - 2 03/13/2016 [facility] URINE AND STOOL UA Turbidity Clear (03/13/16 9:35 AM) Clear 03/13/2016 [facility] URINE AND STOOL UA Spec Grav 1.018 <=1.030 03/13/2016 [facility] URINE AND STOOL UA Color Yellow *NA* (03/13/16 9:35 AM) Yellow 03/13/2016 [facility] BLOOD BANK RESULTS ABO/Rh A POS 03/13/2016 [facility] BLOOD BANK RESULTS Antibody Scrn Negative (03/13/16 9:34 AM) 03/13/2016 [facility] CHEM PANEL Vitamin D, 25-OH, Total 20 ng/mL 30 - 100 03/13/2016 [facility] CHEM PANEL A/G Ratio 0.8 0.7 - 1.6 03/13/2016 [facility] CHEM PANEL Globulin 4.3 g/dL 2.7 - 4.2 03/13/2016 [facility] CHEM PANEL B/C Ratio 19 6 - 25 03/13/2016 [facility] CHEM PANEL AGAP 15.4 meq/L 10.0 - 20.0 03/13/2016 [facility] CHEM PANEL Bili Total 2.3 mg/dL 0.2 - 1.3 03/13/2016 [facility] CHEM PANEL Alk Phos 74 unit/L 39 - 136 03/13/2016 [facility] CHEM PANEL Total Protein 7.7 g/dL 6.4 - 8.4 03/13/2016 [facility] CHEM PANEL eGFR 116 mL/min/1.73m2 03/13/2016 Result Comment: The eGFR is calculated using the [...] from the National Kidney Disease Education Program (NKDEP) which additionally recommends that when the eGFR is used in patients with extremes of body mass index for purposes of drug dosing, the eGFR should be multiplied by the estimated BMI. [facility] CHEM PANEL AST 24 unit/L 0 - 37 03/13/2016 [facility] CHEM PANEL Creatinine Lvl 0.75 mg/dL 0.50 - 1.40 03/13/2016 [facility] CHEM PANEL ALT 25 unit/L 0 - 65 03/13/2016 [facility] CHEM PANEL Albumin Lvl 3.4 g/dL 3.5 - 5.0 03/13/2016 [facility] CHEM PANEL Calcium Lvl 9.2 mg/dL 8.5 - 10.5 03/13/2016 [facility] CHEM PANEL CO2 29 meq/L 24 - 32 03/13/2016 [facility] CHEM PANEL Chloride Lvl 100 meq/L 95 - 109 03/13/2016 [facility] CHEM PANEL BUN 14 mg/dL 7 - 22 03/13/2016 [facility] CHEM PANEL Glucose Lvl 87 mg/dL 70 - 99 03/13/2016 [facility] CHEM PANEL Sodium Lvl 140 meq/L 135 - 145 03/13/2016 [facility] CHEM PANEL Potassium Lvl 4.4 meq/L 3.5 - 5.1 03/13/2016 [facility] HEMATOLOGY Basophils 0.2 % 0.0 - 1.0 03/13/2016 [facility] HEMATOLOGY Eosinophils 0.8 % 0.0 - 4.0 03/13/2016 [facility] HEMATOLOGY Plt Morph Normal (03/13/16 9:34 AM) 03/13/2016 [facility] HEMATOLOGY RBC Morph Normal (03/13/16 9:34 AM) 03/13/2016 [facility] HEMATOLOGY Lymphocytes 19.2 % 20.0 - 40.0 03/13/2016 [facility] HEMATOLOGY Segs 71.1 % 45.0 - 75.0 03/13/2016 [facility] Monocytes 8.7 % 2.0 - 12.0 03/13/2016 [facility] Lymphocytes # 0.9 K/CMM 1.0 - 5.5 03/13/2016 [facility] HEMATOLOGY Segs-Bands # 3.3 K/CMM 1.5 - 8.1 03/13/2016 [facility] Monocytes # 0.4 K/CMM 0.0 - 0.8 03/13/2016 [facility] HEMATOLOGY MPV 7.4 fL 7.4 - 10.4 03/13/2016 [facility] HEMATOLOGY Platelet 167 K/CMM 133 - 450 03/13/2016 [facility] HEMATOLOGY MCHC 31.0 g/dL 32.0 - 36.0 03/13/2016 [facility] HEMATOLOGY RDW 19.3 % 11.5 - 14.5 03/13/2016 [facility] HEMATOLOGY Hgb 20.2 g/dL 14.0 - 18.0 03/13/2016 Result Comment: Critical Result(s) called to EVELYN MCKEON at 03/13/2016 09:58_ by_YM. Read back OK. [facility] HEMATOLOGY Hct 65.2 % 42.0 - 54.0 03/13/2016 [facility] HEMATOLOGY MCH 26.6 pg 27.0 - 31.0 03/13/2016 [facility] HEMATOLOGY MCV 85.9 fL 80.0 - 94.0 03/13/2016 [facility] HEMATOLOGY WBC 4.7 K/CMM 3.7 - 10.4 03/13/2016 [facility] HEMATOLOGY RBC 7.58 M/CMM 4.70 - 6.10 03/13/2016 [facility] PARATHYROID PROFILE PTH Intact 52.9 pg/mL 11.1 - 79.5 03/13/2016 [facility] SPECIAL CHEMISTRY Hgb A1C null <=5.6 % 03/13/2016 [facility] Chest 2 views DX Chest 2 views DX STUDY: Chest, 2 views. COMPARISON: 05/08/2015 HISTORY: Coughing. FINDINGS: The lungs are clear. No dense focal consolidation is seen. No pleural effusion or pneumothorax is seen. The heart is normal in size. The osseous structures are unremarkable. IMPRESSION: No acute cardiopulmonary process. 03/13/2016 - - Read by: Iman Mathews MD Dictated Date/time: 03/13/16 10:02 Electronically Signed by: Iman Mathews MD 03/13/16 10:04 FINAL REPORT [facility] Chest 2 views DX Chest 2 views DX CLINICAL HISTORY: Dizziness. : 1975. TECHNIQUE: PA and lateral views of the chest. Heart size is normal. No acute consolidation. No pleural effusion. IMPRESSION: 1. No active disease in the chest. 05/08/2015 - - Read by: Pako Cali MD Dictated Date/time: 05/08/15 15:33 Electronically Signed by: Pako Cali MD 05/08/15 15:34 FINAL REPORT [facility] CHEM PANEL eGFR 128 mL/min/1.73m2 02/07/2015 Result Comment: The eGFR is calculated using the [...] from the National Kidney Disease Education Program (NKDEP) which additionally recommends that when the eGFR is used in patients with extremes of body mass index for purposes of drug dosing, the eGFR should be multiplied by the estimated BMI. [facility] CHEM PANEL POC AGAP 19.0 meq/L 10.0 - 20.0 02/07/2015 [facility] CHEM PANEL POC Hematocrit 58.0 % 42.0 - 54.0 02/07/2015 [facility] CHEM PANEL POC Hemoglobin 19.7 g/dL 14.0 - 18.0 02/07/2015 [facility] CHEM PANEL POC Ion Ca 1.20 mMol/L 1.05 - 1.25 02/07/2015 [facility] CHEM PANEL POC Potassium 3.5 meq/L 3.5 - 5.1 02/07/2015 [facility] CHEM PANEL POC Sodium 139 meq/L 135 - 145 02/07/2015 [facility] CHEM PANEL POC Glucose 83 mg/dL 70 - 99 02/07/2015 [facility] CHEM PANEL POC Creatinine 0.6 mg/dL 0.5 - 1.4 02/07/2015 [facility] CHEM PANEL POC BUN 9 mg/dL 7 - 22 02/07/2015 [facility] CHEM PANEL POC Carbon Dioxide 34 mEq/dL 24 - 32 02/07/2015 [facility] CHEM PANEL POC Chloride 91 meq/L 95 - 109 02/07/2015 [facility] Vital Signs Vital Sign Value Date Comments Source BMI Calculated 44.4 05/13/2016 [facility] Height 175.26 cm 05/13/2016 [facility] Weight 136.364 05/13/2016 [facility] Respitory Rate 18 03/19/2016 [facility] Systolic (mm Hg) 103 03/19/2016 [facility] Diastolic (mm Hg) 63 03/19/2016 [facility] Temperature Oral (F) 98.0 F 03/19/2016 [facility] Heart Rate 66 03/19/2016 [facility] Respitory Rate 18 03/19/2016 [facility] Temperature Oral (F) 98.2 F 03/19/2016 [facility] Heart Rate 71 03/19/2016 [facility] Systolic (mm Hg) 98 03/19/2016 [facility] Diastolic (mm Hg) 60 03/19/2016 [facility] Temperature Oral (F) 98.1 F 03/19/2016 [facility] Heart Rate 71 03/19/2016 [facility] Respitory Rate 18 03/19/2016 [facility] Systolic (mm Hg) 117 03/19/2016 [facility] Diastolic (mm Hg) 70 03/19/2016 [facility] BMI Calculated 52.11 03/13/2016 [facility] Weight 155.455 03/13/2016 [facility] Height 172.72 cm 03/13/2016 [facility] Height 175.26 cm 02/07/2015 [facility] Weight 186.364 02/07/2015 [facility] BMI Calculated 60.67 02/07/2015 [facility] Encounters Location Location Details Encounter Type Encounter Number Reason For Visit Attending Provider ADM Date DC Date Status Source [facility] Bedded Outpatient [id number] Jose Luis Sheloctaomo 02/07/2015 02/07/2015 [facility] Inpatient [id number] Jose Luis Primomo 03/18/2016 03/20/2016 [facility] Outpatient [id number] [facility] 05/13/2016 05/14/2016 [facility] Outpatient [id number] [facility] 05/13/2016 05/14/2016 General acute hospital Outpatient [facility] Outpt Diag Services [id number] [facility] 05/13/2016 05/14/2016 [facility] [place] Outpt Diag Services [id number] [facility] 05/18/2016 05/19/2016 [facility] Procedures Procedure Code Date Perfomer Comments Source Tonsillectomy [id number] [facility] Tonsillectomy [id number] [facility] Tonsillectomy [id number] [facility]
[2018-07-14 10:01] LABS: BASOPHILS % 0.4 % (0.0-1.0); EOSINOPHILS # (AUTO) 0.1 (0.0-0.4); EOSINOPHILS % 0.7 % (0.0-6.0); HEMOGLOBIN 13.5 g/dL (14.0-18.0); LYMPHOCYTES # (AUTO) 0.9 (1.0-3.2); LYMPHOCYTES % 12.9 % (18.0-39.1); MEAN CORPUSCULAR HEMOGLOBIN 29.2 pg (28-32); MEAN CORPUSCULAR HGB CONC 33.8 g/dL (31-35); MEAN CORPUSCULAR VOLUME 86.6 fL (81-99); MONOCYTES # (AUTO) 0.4 (0.2-0.8); MONOCYTES % 4.9 % (4.4-11.3); NEUTROPHILS # (AUTO) 5.7 (2.1-6.9); NEUTROPHILS % 80.7 % (38.7-80.0); PLATELET COUNT 186 x10e3/uL (140-360); RED BLOOD COUNT 4.62 x10e6/uL (4.3-5.7); RED CELL DISTRIBUTION WIDTH 12.9 % (11.7-14.4)
[2018-07-14 10:13] LABS: BILIRUBIN,URINE NEGATIVE (NEGATIVE); CLARITY,URINE CLEAR (CLEAR); COLOR,URINE YELLOW (YELLOW); KETONES,URINE NEGATIVE (NEGATIVE); LEUKOCYTE ESTERASE ,URINE NEGATIVE (NEGATIVE); NITRITE,URINE NEGATIVE (NEGATIVE); PROTEIN,URINE DIPSTICK TRACE (NEGATIVE); URINE UROBILINOGEN 4 mg/dL (0.2 - 1)
[2018-07-14 10:22] LABS: ALANINE AMINOTRANSFERASE 25 IU/L (0-55); ALBUMIN/GLOBULIN RATIO 1.3 (0.8-2.0); ALKALINE PHOSPHATASE 91 IU/L (40-150); ANION GAP 13.4 mmol/L (8-16); BLOOD UREA NITROGEN 16 mg/dL (7-26); BUN/CREATININE RATIO 21 (6-25); CALCIUM 9.4 mg/dL (8.4-10.2); CARBON DIOXIDE 27 mmol/L (22-29); CHLORIDE 100 mmol/L (98-107); CREATININE, SERUM 0.75 mg/dL (0.72-1.25); EST GLOMERULAR FILTRATION RATE > 60 ML/MIN (60-); GLUCOSE 100 mg/dL (74-118); LIPASE 22 U/L (8-78); POTASSIUM 3.4 mmol/L (3.5-5.1); SODIUM 137 mmol/L (136-145)
[2018-07-14 10:25] LABS: BACTERIA,URINE FEW /HPF; EPITHELIAL CELLS,URINE RARE /LPF; WBC,URINE (MAN) 0-5 /HPF (0-5)
[2018-07-14] MEDS ORDERED: ONDANSETRON HCL INJ 2MG/ML 2ML 2 MG/ML VIAL IV STA (10:26)
[2018-07-14] MEDS ORDERED: SODIUM CHLORIDE 0.9% 1000ML 1,000 ML IV STA (10:27)
[2018-07-14] MEDS ORDERED: PANTOPRAZOLE 40 MG 10ML VIAL IV STA (10:28)
[2018-07-14] MEDS ORDERED: MAGNESIUM/ALUMINUM/SIMETHICONE 30 ML UDC PO ONE (10:30)
[2018-07-14] MEDS ORDERED: LIDOCAINE VISC 2% SOLN 15 ML UDC PO ONE (10:30)
--- NOTE | 2018-07-14 10:43 | Diagnostic Imaging Report ---
RADIOGRAPH(S) OF THE ABDOMEN AND PELVIS, 3 view(s) HISTORY: Pain COMPARISON: None available. FINDINGS: No specific evidence of obstruction or ileus. No definite urinary tract calcification. Post surgical changes at the left upper quadrant the abdomen. A nonspecific 9 mm punctate calcific density projects at the lateral aspect of the left mid abdomen on 2 of the views. The bones are partially obscured by stool and overlying bowel gas. IMPRESSION: 1. Nonobstructive bowel gas pattern. 2. Subcentimeter nonspecific calcific density projecting at the lateral aspect of the left mid abdomen, may be radiopaque bowel contents, an artifact, or a nonspecific calcification. Signed by: Dr. Alexandro Adames D.O., M.M.M. on 07/14/2018 10:40 AM
--- NOTE | 2018-07-14 12:29 | Diagnostic Imaging Report ---
EXAMINATION: Right upper quadrant ultrasound CLINICAL INDICATION: Right upper quadrant pain, concern for cholecystitis COMPARISON: KUB same day DISCUSSION: Transverse and longitudinal images of the right upper quadrant were obtained. The liver is normal in size measuring 13.4centimeters in length in the right midclavicular line and shows normal echogenicity. No focal masses are seen in the liver. There is no intrahepatic biliary dilatation. The common bile duct measures 0.4 cm in caliber. Portal vein measures 0.9 cm and is patent with hepatopedal flow. Multiple shadowing calculi are identified within the gallbladder lumen. No wall thickening or pericholecystic fluid. Sonographic Rose sign is reported as negative. The visualized portions of the pancreatic body and proximal tail are unremarkable. The right kidney measures 11.4 centimeters in length. There is normal renal cortical echogenicity and no hydronephrosis, mass or shadowing calculi. Abdominal aorta is nonaneurysmal. IVC is patent. No free fluid is seen. IMPRESSION: Cholelithiasis without sonographic findings of acute cholecystitis. Signed by: Dr. Jim Kim M.D. on 07/14/2018 12:25 PM
--- NOTE | 2018-07-14 12:30 | NUR ---
VERBAL REPORT GIVEN TO AARON LARKIN.
[2018-07-14 12:54] VITALS: BP 101/75
[2018-07-14] MEDS ORDERED: BELLADONNA ALK/PHENOBARBITAL 5 ML UDC PO SCH ×2 (15:00)
== END 2018-07-14 12:55 | disposition home or self-care (01) ==
LOC: ER 09:06
DX: R10.13 Epigastric pain (principal); R11.2 Nausea with vomiting, unspecified; K80.20 Calculus of gallbladder without cholecystitis without obstruction; Z98.84 Bariatric surgery status
CPT/HCPCS: 36415; 74018; 76705; 80053; 81001; 83690; 84484; 85025; 93005; 99284; C9113; J2405; J7030

== ENCOUNTER → 2018-07-22 | Outpatient (CLI) | payer BC ==
--- NOTE | 2018-07-22 18:43 | Diagnostic Imaging Report ---
HEPATOBILIARY SCAN INDICATION: Cholelithiasis; RUQ abdominal pain x3-4 months Report: Following the administration of 6.8 mCi of Tc-99m mebrofenin, dynamic images of the abdomen in the anterior projection were obtained through 60 minutes. Additional static images were obtained at 2 and 3 hours. Perfusion of the liver is normal. Extraction of tracer from the blood pool by the liver parenchyma is normal. Tracer appears promptly with in the biliary tract. Tracer is seen in the small bowel by 12 minutes post injection of the radiotracer. The gallbladder does not fill during the initial 60-minute dynamic sequence and does not fill through 3 hours. Impression: Absence of filling of the gallbladder through 3 hours post administration of the radiotracer supports the clinical diagnosis of chronic and/or acute cholecystitis. Signed by: Dr. Estrellita London M.D. on 07/22/2018 6:40 PM
== END ==
LOC: NM 13:03
PROVIDERS: ATTEND Internal Medicine Gastroenterology
DX: K80.80 Other cholelithiasis without obstruction (principal); R11.0 Nausea
CPT/HCPCS: 78226; A9537

== ENCOUNTER → 2018-08-26 | Day surgery (SDC) | payer BC ==
[2018-08-23 15:45] LABS: BASOPHILS % 0.3 % (0.0-1.0); EOSINOPHILS # (AUTO) 0.1 (0.0-0.4); EOSINOPHILS % 0.8 % (0.0-6.0); HEMOGLOBIN 13.8 g/dL (14.0-18.0); LYMPHOCYTES # (AUTO) 1.3 (1.0-3.2); LYMPHOCYTES % 21.5 % (18.0-39.1); MEAN CORPUSCULAR HEMOGLOBIN 29.1 pg (28-32); MEAN CORPUSCULAR HGB CONC 33.7 g/dL (31-35); MEAN CORPUSCULAR VOLUME 86.3 fL (81-99); MONOCYTES # (AUTO) 0.4 (0.2-0.8); MONOCYTES % 5.6 % (4.4-11.3); NEUTROPHILS # (AUTO) 4.5 (2.1-6.9); NEUTROPHILS % 71.6 % (38.7-80.0); PLATELET COUNT 202 x10e3/uL (140-360); RED BLOOD COUNT 4.75 x10e6/uL (4.3-5.7); RED CELL DISTRIBUTION WIDTH 12.7 % (11.7-14.4)
[2018-08-23 16:20] LABS: ALANINE AMINOTRANSFERASE 11 IU/L (0-55); ALBUMIN 3.7 g/dL (3.5-5.0); ALKALINE PHOSPHATASE 87 IU/L (40-150); ANION GAP 10.4 mmol/L (8-16); BLOOD UREA NITROGEN 18 mg/dL (7-26); BUN/CREATININE RATIO 26 (6-25); CALCIUM 9.2 mg/dL (8.4-10.2); CARBON DIOXIDE 27 mmol/L (22-29); CHLORIDE 98 mmol/L (98-107); CREATININE, SERUM 0.69 mg/dL (0.72-1.25); EST GLOMERULAR FILTRATION RATE > 60 ML/MIN (60-); GLUCOSE 94 mg/dL (74-118); POTASSIUM 3.4 mmol/L (3.5-5.1); SODIUM 132 mmol/L (136-145)
[~2018-08-26] MED LIST: BUPIVACAINE 0.25%/EPI 30ML SDV INJ ONE; DEXAMETHASONE SOD PHOS INJ 4 MG/ML VIAL ONE; FENTANYL CITRATE/PF 100MCG/2 ML INJ ONE; HYDROCODONE/APAP 7.5MG-325MG 1 EA TAB ONE; LIDOCAINE HCL 2% LOCAL INJ 5 ML SDV VIAL INJ ONE; METOCLOPRAMIDE HCL 10 MG/2ML VIAL ONE; MIDAZOLAM HCL 2 MG/2 ML VIAL ONE; ONDANSETRON HCL INJ 2MG/ML 2ML 2 MG/ML VIAL ONE; PROPOFOL IV EMULSION 10 MG/ML 20 ML VIAL ONE; ROCURONIUM BROMIDE 10 MG/ML 5ML VIAL ONE; SEVOFLURANE INHAL SOLN 250 ML PEN BTL ONE
--- OUTSIDE RECORDS SUMMARY | 2018-08-26 07:12 | XMS REPORT ---
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 Allergies, Adverse Reactions, Alerts This patient has no known allergies or adverse reactions. Medications This patient has no known medications. Results Test Description Test Time Test Comments Text Results Atomic Results Result Comments HEPTOBILIARY 2018-07-22 18:35:00 [place] [id number] Patient Name: JUSTICE TURNER MR #: [id number] : 1975 Age/Sex: 43/M Req #: [id number] Adm Physician: Ordered by: CHANTAL GARCIA MD Report #: [id number] Location: [place] Room/Bed: Procedure: [id number] NM/HEPTOBILIARY Exam Date: 07/22/18 Exam Time: 1400 REPORT STATUS: Signed HEPATOBILIARY SCAN INDICATION: Cholelithiasis; RUQ ab dominal pain x3-4 months Report: Following the administration of 6.8 mCi of Tc-99m mebrofenin, dynamic images of the abdomen in the anterior projection were obtained through 60 minutes. Additional static images were obtained at 2 and 3 hours. Perfusion of the liver is normal. Extraction of tracer from the blood pool by the liver parenchyma is normal. Tracer appears promptly with in the biliary tract. Tracer is seen in the small bowel by 12 minutes post injection of the radiotracer. The gallbladder does not fill during the initial 60-minute dynamic sequence and does not fill through 3 hours. Impression: Absence of filling of the gallbladder through 3 hours post administration of the radiotracer supports the clinical diagnosis of chronic and/or acute cholecystitis. Signed by: Dr. Catalina London M.D. on 07/22/2018 6:40 PM Dictated By: CATALINA LONDON MD 39 Transcribed By: PRASAD on 07/22/181839 COPY TO: CHANTAL GARCIA MD GALLBLADDER 2018-07-14 12:23:00 [place] [address] Patient Name: JUSTICE TURNER MR #: [id number] : 1975 Age/Sex: 43/M Req #: [id number] Adm Physician: Ordered by: RENATA LYNCH MD Report #: [id number] Location: ER Room/Bed: Procedure: [id number] US/US GALLBLADDER Exam Date: 07/14/18 Exam Time: 1200 REPORT STATUS: Signed EXAMINATION: Right upper quadrant ultrasound CLINICAL INDICATION: Right upper quadrant pain, concern for cholecystitis COMPARISON: KUB same day DISCUSSION: Transverse and longitudinal images of the right upper quadrant were obtained. The liver is normal in size measuring 13.4centimeters in length in the right midclavicular line and shows normal echogenicity. No focal masses are seen in the liver. There is no intrahepatic biliary dilatation. The common bile duct measures 0.4 cm in caliber. Portal vein measures 0.9 cm and is patent with hepatopedal flow. Multiple shadowing calculi are identified within the gallbladder lumen. No wall thickening or pericholecystic fluid. Sonographic Rose sign is reported as negative. The visualized portions of the pancreatic body and proximal tail are unremarkable. The right kidney measures 11.4 centimeters in length. There is normal renal cortical echogenicity and no hydronephrosis, mass or shadowing calculi. Abdominal aorta is nonaneurysmal. IVC is patent. No free fluid is seen. IMPRESSION: Cholelithiasis without sonographic findings of acute cholecystitis. Signed by: Dr. Star Flowers M.D. on 07/14/2018 12:25 PM Dictated By: STAR FLOWERS MD 1225 Transcribed By: PRASAD on 07/14/18 1225 COPY TO: RENATA LYNCH MD ABDOMEN-1VIEW (KUB) 2018-07-14 10:37:00 [place] [id number] Patient Name: JUSTICE TURNER MR #: [id number] : 1975 Age/Sex: 43/M Req #: [id number] Adm Physician: Ordered by: RENATA LYNCH MD Report #: [id number] Location: ER Room/Bed: Procedure: [id number] DX/ABDOMEN-1VIEW (KUB) Exam Date: 07/14/18 Exam Time: 0950 REPORT STATUS: Signed RADIOGRAPH(S) OF THE ABDOMEN AND PELVIS, 3 view(s) HISTORY: Pain COMPARISON: None available. FINDINGS: No specific evidence of obstruction or ileus. No definite urinary tract calcification. Post surgical changes at the left upper quadrant the abdomen. A nonspecific 9 mm punctate calcific density projects at the lateral aspect of the left mid abdomen on 2 of the views. The bones are partially obscured by stool and overlying bowel gas. IMPRESSION: 1. Nonobstructive bowel gas pattern. 2. Subcentimeter nonspecific calcific density projecting at the lateral aspect of the left mid abdomen, may be radiopaque bowel contents, an artifact, or a nonspecific calcification. Signed by: Dr. Alexandro Adames D.O., M.M.M. on 07/14/2018 10:40 AM Dictated By: ALEXANDRO ADAMES DO 1040 Transcribed By: PRASAD on 07/14/18 1040 COPY TO: RENATA LYNCH MD
--- OUTSIDE RECORDS SUMMARY | 2018-08-26 07:12 | XMS REPORT | Continuity of Care Document ---
Author Author [facility] Interface Address Unknown Phone Unavailable Problems Problem Status Onset Date Classification Date Reported Comments Source EKG Active 05/13/2016 [facility] R06.02 Active 05/06/2016 [facility] 02378, MORBID OBESITY Active 03/03/2016 [facility] 07866, MORBID OBESITY Active 03/26/2015 [facility] ANEMIA DIARRHEA Active 01/16/2015 [facility] Morbid obesity Active Problem 05/21/2016 [facility] Sleep apnea Active Problem 05/21/2016 [facility] ILLNESS, UNSPECIFIED Active [facility] Medications Medication Details Route Status Patient Instructions Ordering Provider Order Date Source Tylenol 650 mg, 2 tab, Route: PO, Drug form: TAB, Q6H-02, Dosing Weight 155.455, kg, Start date: 03/19/16 20:00:00 CDT, Duration: 4 doses or times, Stop date: 03/20/16 14:00:00 CDTNotes: Do not exceed 4 gm/day. 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 [facility] enoxaparin 30 mg/0.3 mL subcutaneous solution 40 mg, SUB- Q, Q12H, Dispense quantity sufficient, X 14 day, # 28 syr, 0 Refill(s) Active 03/19/2016 [facility] enoxaparin 40 mg/0.4 mL subcutaneous solution 40 mg, SUB- Q, Q12H, Dispense quantity sufficient, X 14 day, # 28 syr, 0 Refill(s) Inactive 03/19/2016 [facility] tramadol hydrochloride 50 MG Oral Tablet 50 mg=1 tab, PO, Q6H, PRN Pain Score 6-10, # 50 tab, 0 Refill(s) Active 03/19/2016 [facility] Gas-X Ultra Softgels 160 mg, 2 tab, Route: PO, Drug form: CHEWTAB, BID, Dosing Weight 155.455, kg, PRN Gas, Start date: 03/19/16 7:28:00 CDT, Duration: 30 day, Stop date: 04/18/16 7:27:00 CSTNotes: (Same as: Mylicon) Inactive 03/19/2016 [facility] Famotidine 20 mg, 1 tab, Route: PO, Drug form: TAB, Q12H, Dosing Weight 155.455, kg, Start date: 03/18/16 21:00:00 CDT, Stop date: 04/17/16 9:00:00 CSTNotes: (Same as: Pepcid) No Longer Active 03/19/2016 [facility] ketOROLAC 30 mg/mL injectable solution 30 [...] Wasted: ___ mg No Longer Active 03/19/2016 [facility] Ofirmev 1,000 mg, 100 mL, Route: IV, Drug form: INJ, Q6H- 02, Dosing Weight 155.455, kg, for > or=50 kg, Start date: 03/18/16 20:00:00 CDT, Duration: 4 doses or times, Stop date: 03/19/16 14:00:00 CDTNotes: Infuse over 15 minutes Do not exceed 4gm/day of acetaminophen MEDICATION WASTE Product Size: 1000 mg Product Wasted: ___ mg No Longer Active 03/19/2016 [facility] Beneprotein 7 gm pkt 2 pkt, Route: PO, Drug Form: PWDR, Dosing Weight 155.455, kg, TID-Before Meals, Routine, Start date: 03/18/16 18:36:00 CDT, Duration: 30 day, Stop date: 04/17/16 16:30:00 CSTNotes: (Same as: Beneprotein) No Longer Active 03/18/2016 [facility] glycopyrrolate (ANES) Route: IV, Drug form: INJ, ONCE, Stop date: 03/18/16 13:05:00 CDT Inactive 03/18/2016 [facility] neostigmine (ANES) Route: IV, Drug form: INJ, ONCE, Stop date: 03/18/16 13:05:00 CDT Inactive 03/18/2016 [facility] ondansetron (ANES) Route: IV, Drug form: INJ, ONCE, Stop date: 03/18/16 12:56:00 CDT Inactive 03/18/2016 [facility] morphine Sulfate (ANES) Route: IV, Drug form: INJ, ONCE, Stop date: 03/18/16 12:51:00 CDT Inactive 03/18/2016 [facility] dexamethasone (ANES) Route: IV, Drug form: INJ, ONCE, Stop date: 03/18/16 12:16:00 CDT Inactive 03/18/2016 [facility] ceFAZolin (ANES) Route: IV, Drug form: INJ, ONCE, Stop date: 03/18/16 12:16:00 CDT Inactive 03/18/2016 [facility] succinylcholine (ANES) Route: IV, Drug form: INJ, ONCE, Stop date: 03/18/16 12:01:00 CDT Inactive 03/18/2016 [facility] midazolam (ANES) Route: IV, Drug form: SOLN, ONCE, Stop date: 03/18/16 12:01:00 CDT Inactive 03/18/2016 [facility] propofol (ANES) Route: IV, Drug form: INJ, ONCE, Stop date: 03/18/16 12:01:00 CDT Inactive 03/18/2016 [facility] lidocaine (ANES) Route: IV, Drug form: INJ, ONCE, Stop date: 03/18/16 12:01:00 CDT Inactive 03/18/2016 [facility] rocuronium (ANES) Route: IV, Drug form: INJ, ONCE, Stop date: 03/18/16 12:01:00 CDT Inactive 03/18/2016 [facility] fentaNYL (ANES) Route: IV, Drug form: INJ, ONCE, Stop date: 03/18/16 12:01:00 CDT Inactive 03/18/2016 [facility] Ofirmev 1,000 mg, 100 mL, Route: IV, Drug form: INJ, Q6H- WA, Dosing Weight 155.455, kg, for > or=50 kg, Start date: 03/18/16 12:00:00 CDT, Duration: 4 doses or times, Stop date: 03/19/16 6:00:00 CDTNotes: Infuse over 15 minutes Do not exceed 4gm/day of acetaminophen MEDICATION WASTE Product Size: 1000 mg Product Wasted: ___ mg Inactive 03/18/2016 [facility] Tylenol 650 mg, 2 tab, Route: PO, Drug form: TAB, Q6H-02, Dosing Weight 155.455, kg, Start date: 03/18/16 12:00:00 CDT, Duration: 4 doses or times, Stop date: 03/19/16 2:00:00 CDTNotes: Do not exceed 4 gm/day. 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/18/2016 [facility] Hydralazine 10 mg, 0.5 mL, Route: IVP, Drug form: INJ, Q20Min, Dosing Weight 155.455, kg, PRN Elevated BP, Start date: 03/18/16 11:47:00 CDT, Duration: 2 doses or times, Stop date: Limited # of timesNotes: (Same as: Apresoline) Push over 5 minutes Inactive 03/18/2016 [facility] Morphine 4 mg, 1 mL, Route: IVP, Drug form: INJ, Q5Min, Dosing Weight 155.455, kg, PRN Pain Score 7-10, Start date: 03/18/16 11:47:00 CDT, Duration: 3 doses or times, Stop date: Limited # of timesNotes: (Same as:MORPhine Sulfate) Inactive 03/18/2016 [facility] Flumazenil 0.2 mg, 2 mL, Route: IVP, Drug form: INJ, PRN, Dosing Weight 155.455, kg, PRN Benzodiazepine Reversal, Initial dose, Start date: 03/18/16 11:47:00 CDT, Duration: 30 day, Stop date: 04/17/16 10:46:00 CSTNotes: (Same as: Romazicon) Inactive 03/18/2016 [facility] Hydromorphone 0.5 mg, 0.25 mL, Route: IVP, Drug form: INJ, Q5Min, Dosing Weight 155.455, kg, PRN Pain Score 7-10, Start date: 03/18/16 11:47:00 CDT, Duration: 4 doses or times, Stop date: Limited # of timesNotes: (Same as: Dilaudid) Inactive 03/18/2016 [facility] Ondansetron 4 mg, 2 mL, Route: IVP, Drug form: INJ, ONCE, Dosing Weight 155.455, kg, PRN Nausea & Vomiting, Start date: 03/18/16 11:47:00 CDTNotes: (Same as: Zofran) MEDICATION WASTE Product Size: 4 mg Product Wasted: ___ mg Inactive 03/18/2016 [facility] Naloxone 0.4 mg, 1 mL, Route: IVP, Drug form: INJ, Q2MIN, Dosing Weight 155.455, kg, PRN Narcotic Reversal, Start date: 03/18/16 11:47:00 CDT, Duration: 8 doses or times, Stop date: Limited # of timesNotes: Same as Narcan Inactive 03/18/2016 [facility] acetaminophen (ANES) (ANES) Route: IV, Drug form: INJ, Start date: 03/18/16 11:44:00 CDT, Stop date: 03/18/16 12:44:00 CDT Inactive 03/18/2016 [facility] LR 1000 mL INJ (ANES) Route: IV, Total Volume: 1,000, Start date: 03/18/16 11:19:00 CDT, Stop date: 03/18/16 12:19:00 CDT Inactive 03/18/2016 [facility] Enoxaparin 30 mg, 0.3 mL, Route: SUB-Q, Drug form: INJ, Q12H, Dosing Weight 155.455, kg, Start date: 03/18/16 11:00:00 CDT, Duration: 30 day, Stop date: 04/17/16 1:00:00 CSTNotes: (Same as: Lovenox) No Longer Active 03/18/2016 [facility] tramadol hydrochloride 50 MG Oral Tablet 50 mg, 1 tab, Route: PO, Drug form: TAB, Q6H, Dosing Weight 155.455, kg, PRN Other -See Comment, Start date: 03/18/16 10:11:00 CDT, Duration: 30 day, Stop date: 04/17/16 10:10:00 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, Pain Score 3-6 No Longer Active 03/18/2016 [facility] Dilaudid 0.5 mg, 0.25 mL, Route: IV, Drug form: INJ, Q3H, Dosing Weight 155.455, kg, PRN Pain Score 7-10, Start date: 03/18/16 10:11:00 CDT, Duration: 30 day, Stop date: 04/17/16 10:10:00 CSTNotes: (Same as: Dilaudid) No Longer Active 03/18/2016 [facility] Metoprolol 5 mg, 5 mL, Route: IVP, Drug form: INJ, Q6H, Dosing Weight 155.455, kg, PRN Hypertension, SBP > 170; DBP > 95, Start date: 03/18/16 10:11:00 CDT, Duration: 30 day, Stop date: 04/17/16 10:10:00 CSTNotes: (Same as: Lopressor) Push over 2 minutes No Longer Active 03/18/2016 [facility] Promethazine 12.5 mg, 0.5 mL, Route: IM, Drug form: INJ, Q4H, Dosing Weight 155.455, kg, PRN Nausea & Vomiting, Start date: 03/18/16 10:11:00 CDT, Duration: 30 day, Stop date: 04/17/16 10:10:00 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 03/18/2016 [facility] Ondansetron 4 mg, 2 mL, Route: IVP, Drug form: INJ, Q6H, Dosing Weight 155.455, kg, PRN Nausea & Vomiting, Start date: 03/18/16 10:11:00 CDT, Duration: 30 day, Stop date: 04/17/16 10:10:00 CSTNotes: (Same as: Jerardo) MEDICATION WASTE Product Size: 4 mg Product Wasted: ___ mg No Longer Active 03/18/2016 [facility] Calcium Chloride 0.0014 MEQ/ML / Potassium Chloride 0.004 MEQ/ML / Sodium Chloride 0.103 MEQ/ML / Sodium Lactate 0.028 MEQ/ML Injectable Solution 1,000 mL, Rate: 125 ml/hr, Infuse over: 8 hr, Route: IV, Dosing Weight 155.455 kg, Total Volume: 1,000, Start date: 03/18/16 10:11:00 CDT, Duration: 30 day, Stop date: 04/17/16 10:10:00 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 03/18/2016 [facility] heparin 5,000 unit, Route: SUB-Q, ONCE, Dosing Weight 155.455, kg, Start date: 03/18/16 10:02:00 CDT, Stop date: 03/18/16 10:02:00 CDT Inactive 03/18/2016 [facility] Ancef 3 gm, 100 mL, Route: IVPB, Drug form: INJ, ONCALL, Start date: 03/17/16 22:00:00 CDT, Duration: 22 hr, Stop date: 03/18/16 19:59:00 CDTNotes: Same as: Ancef No Longer Active 03/18/2016 [facility] Potassium Chloride 20 MEQ Extended Release Tablet 20 mEq=1 tab, PO, Daily, 0 Refill(s) Active 02/07/2015 [facility] Metformin 500 mg, PO, Daily, 0 Refill(s) Active 02/07/2015 [facility] Furosemide 40 MG Oral Tablet 40 mg=1 tab, PO, Daily, 0 Refill(s) Active 02/07/2015 [facility] Allergies, Adverse Reactions, Alerts Substance Category [...] Iman Mathews MD 05/18/16 09:31 FINAL REPORT [facility] Abdomen complete US Abdomen complete US STUDY: [...] Iman Mathews MD 05/18/16 10:28 [facility] [place] [facility] 2 [facility] DX Chest 2 views [...] Pako Cali MD 05/13/16 16:19 FINAL REPORT [facility] ELECTROLYTES CO2 31 meq/L 24 - 32 03/19/2016 [facility] ELECTROLYTES Calcium Lvl 8.7 mg/dL 8.5 - 10.5 03/19/2016 [facility] ELECTROLYTES BUN 15 mg/dL 7 - 22 03/19/2016 [facility] ELECTROLYTES Glucose Lvl 84 mg/dL 70 - 99 03/19/2016 [facility] ELECTROLYTES Sodium Lvl 136 meq/L 135 - 145 03/19/2016 [facility] ELECTROLYTES Potassium Lvl 4.7 meq/L 3.5 - 5.1 03/19/2016 [facility] ELECTROLYTES Chloride Lvl 95 meq/L 95 - 109 03/19/2016 [facility] ELECTROLYTES Creatinine Lvl 0.79 mg/dL 0.50 - 1.40 03/19/2016 [facility] ELECTROLYTES eGFR 114 mL/min/1.73m2 03/19/2016 Result [...] should be multiplied by the estimated BMI. [facility] ELECTROLYTES AGAP 14.7 meq/L 10.0 - 20.0 03/19/2016 [facility] HEMATOLOGY Lymphocytes 9.0 % 20.0 - 40.0 03/19/2016 [facility] HEMATOLOGY Monocytes 7.0 % 2.0 - 12.0 03/19/2016 [facility] HEMATOLOGY Atypical Lymphs 0.0 % <=0.0 % 03/19/2016 [facility] HEMATOLOGY RBC Morph Normal (03/19/16 3:42 AM) 03/19/2016 [facility] HEMATOLOGY Plt Morph Normal (03/19/16 3:42 AM) 03/19/2016 [facility] HEMATOLOGY Lymphocytes # 0.5 K/CMM 1.0 - 5.5 03/19/2016 [facility] HEMATOLOGY Monocytes # 0.4 K/CMM 0.0 - 0.8 03/19/2016 [facility] HEMATOLOGY Segs 84.0 % 45.0 - 75.0 03/19/2016 [facility] HEMATOLOGY Bands 0.0 % 0.0 - 11.0 03/19/2016 [facility] Segs-Bands # 5.0 K/CMM 1.5 - 8.1 03/19/2016 [facility] HEMATOLOGY MPV 8.3 fL 7.4 - 10.4 03/19/2016 [facility] HEMATOLOGY RDW 19.0 % 11.5 - 14.5 03/19/2016 [facility] HEMATOLOGY Platelet 188 K/CMM 133 - 450 03/19/2016 [facility] HEMATOLOGY MCHC 30.4 g/dL 32.0 - 36.0 03/19/2016 [facility] HEMATOLOGY MCV 87.0 fL 80.0 - 94.0 03/19/2016 [facility] HEMATOLOGY MCH 26.4 pg 27.0 - 31.0 03/19/2016 [facility] HEMATOLOGY Hct 62.5 % 42.0 - 54.0 03/19/2016 Result Comment: Critical Result(s) called to CRISTOFER GILBERT at 03/19/2016 06:50 byCB. Read back OK. [facility] HEMATOLOGY Hgb 19.0 g/dL 14.0 - 18.0 03/19/2016 [facility] HEMATOLOGY WBC 6.0 K/CMM 3.7 - 10.4 03/19/2016 [facility] HEMATOLOGY RBC 7.18 M/CMM 4.70 - 6.10 03/19/2016 [facility] HEMATOLOGY Lymphocytes # 0.9 K/CMM 1.0 - 5.5 03/18/2016 [facility] HEMATOLOGY Segs-Bands # 3.3 K/CMM 1.5 - 8.1 03/18/2016 [facility] HEMATOLOGY Monocytes # 0.4 K/CMM 0.0 - 0.8 03/18/2016 [facility] HEMATOLOGY Basophils 0.3 % 0.0 - 1.0 03/18/2016 [facility] HEMATOLOGY Eosinophils 0.8 % 0.0 - 4.0 03/18/2016 [facility] HEMATOLOGY Monocytes 8.3 % 2.0 - 12.0 03/18/2016 [facility] HEMATOLOGY Segs 71.5 % 45.0 - 75.0 03/18/2016 [facility] HEMATOLOGY Lymphocytes 19.1 % 20.0 - 40.0 03/18/2016 [facility] HEMATOLOGY RBC Morph Normal (03/18/16 8:32 AM) 03/18/2016 [facility] HEMATOLOGY Plt Morph Normal (03/18/16 8:32 AM) 03/18/2016 [facility] HEMATOLOGY RDW 18.7 % 11.5 - 14.5 03/18/2016 [facility] HEMATOLOGY MCHC 31.2 g/dL 32.0 - 36.0 03/18/2016 [facility] HEMATOLOGY MCV 84.9 fL 80.0 - 94.0 03/18/2016 [facility] HEMATOLOGY Hct 64.6 % 42.0 - 54.0 03/18/2016 [facility] HEMATOLOGY RBC 7.60 M/CMM 4.70 - 6.10 03/18/2016 [facility] HEMATOLOGY MPV 8.8 fL 7.4 - 10.4 03/18/2016 [facility] HEMATOLOGY Platelet 163 K/CMM 133 - 450 03/18/2016 [facility] HEMATOLOGY MCH 26.5 pg 27.0 - 31.0 03/18/2016 [facility] HEMATOLOGY WBC 4.6 K/CMM 3.7 - 10.4 03/18/2016 [facility] HEMATOLOGY Hgb 20.1 g/dL 14.0 - 18.0 03/18/2016 Result Comment: Critical Result(s) called to YUDY GIRARD at 03/18/2016 09:00 by SKR. Read back OK. [facility] URINE AND STOOL Micro? Not Indicated *NA* (03/13/16 9:35 AM) 03/13/2016 [facility] URINE AND STOOL UA Glucose Negative mg/dL Negative mg/dL 03/13/2016 [facility] URINE AND STOOL UA Ketones Trace mg/dL Negative mg/dL 03/13/2016 [facility] URINE AND STOOL UA Protein Negative mg/dL Negative mg/dL 03/13/2016 [facility] URINE AND STOOL UA Bili Negative *NA* (03/13/16 9:35 AM) Negative 03/13/2016 [facility] URINE AND STOOL UA pH 6.0 5.0 - 8.0 03/13/2016 [facility] URINE AND STOOL UA Leuk Est Negative (03/13/16 9:35 AM) Negative 03/13/2016 [facility] URINE AND STOOL UA WBC 1 /HPF 0 - 5 03/13/2016 [facility] URINE AND STOOL UA Urobilinogen 2.0 mg/dL 0.1 - 1.0 03/13/2016 [facility] URINE AND STOOL UA Blood Negative (03/13/16 9:35 AM) Negative 03/13/2016 [facility] URINE AND STOOL UA Nitrite Negative (03/13/16 9:35 AM) Negative 03/13/2016 [facility] URINE AND STOOL UA Mucus Few /LPF None Seen /LPF 03/13/2016 [facility] URINE AND STOOL UA RBC null 0 - 2 03/13/2016 [facility] URINE AND STOOL UA Turbidity Clear (03/13/16 9:35 AM) Clear 03/13/2016 [facility] URINE AND STOOL UA Spec Grav 1.018 <=1.030 03/13/2016 [facility] URINE AND STOOL UA Color Yellow *NA* (03/13/16 9:35 AM) Yellow 03/13/2016 [facility] BLOOD BANK RESULTS ABO/Rh A POS 03/13/2016 [facility] BLOOD BANK RESULTS Antibody Scrn Negative (03/13/16 9:34 AM) 03/13/2016 [facility] CHEM PANEL Vitamin D, 25-OH, Total 20 ng/mL 30 - 100 03/13/2016 [facility] CHEM PANEL A/G Ratio 0.8 0.7 - 1.6 03/13/2016 [facility] CHEM PANEL Globulin 4.3 g/dL 2.7 - 4.2 03/13/2016 [facility] CHEM PANEL B/C Ratio 19 6 - 25 03/13/2016 [facility] CHEM PANEL AGAP 15.4 meq/L 10.0 - 20.0 03/13/2016 [facility] CHEM PANEL Bili Total 2.3 mg/dL 0.2 - 1.3 03/13/2016 [facility] CHEM PANEL Alk Phos 74 unit/L 39 - 136 03/13/2016 [facility] CHEM PANEL Total Protein 7.7 g/dL 6.4 - 8.4 03/13/2016 [facility] CHEM PANEL eGFR 116 mL/min/1.73m2 03/13/2016 [...] should be multiplied by the estimated BMI. [facility] CHEM PANEL AST 24 unit/L 0 - 37 03/13/2016 [facility] CHEM PANEL Creatinine Lvl 0.75 mg/dL 0.50 - 1.40 03/13/2016 [facility] CHEM PANEL ALT 25 unit/L 0 - 65 03/13/2016 [facility] CHEM PANEL Albumin Lvl 3.4 g/dL 3.5 - 5.0 03/13/2016 [facility] CHEM PANEL Calcium Lvl 9.2 mg/dL 8.5 - 10.5 03/13/2016 [facility] CHEM PANEL CO2 29 meq/L 24 - 32 03/13/2016 [facility] CHEM PANEL Chloride Lvl 100 meq/L 95 - 109 03/13/2016 [facility] CHEM PANEL BUN 14 mg/dL 7 - 22 03/13/2016 [facility] CHEM PANEL Glucose Lvl 87 mg/dL 70 - 99 03/13/2016 [facility] CHEM PANEL Sodium Lvl 140 meq/L 135 - 145 03/13/2016 [facility] CHEM PANEL Potassium Lvl 4.4 meq/L 3.5 - 5.1 03/13/2016 [facility] HEMATOLOGY Basophils 0.2 % 0.0 - 1.0 03/13/2016 [facility] HEMATOLOGY Eosinophils 0.8 % 0.0 - 4.0 03/13/2016 [facility] HEMATOLOGY Plt Morph Normal (03/13/16 9:34 AM) 03/13/2016 [facility] HEMATOLOGY RBC Morph Normal (03/13/16 9:34 AM) 03/13/2016 [facility] Lymphocytes 19.2 % 20.0 - 40.0 03/13/2016 [facility] HEMATOLOGY Segs 71.1 % 45.0 - 75.0 03/13/2016 [facility] Monocytes 8.7 % 2.0 - 12.0 03/13/2016 [facility] Lymphocytes # 0.9 K/CMM 1.0 - 5.5 03/13/2016 [facility] Segs-Bands # 3.3 K/CMM 1.5 - 8.1 03/13/2016 [facility] Monocytes # 0.4 K/CMM 0.0 - 0.8 03/13/2016 [facility] MPV 7.4 fL 7.4 - 10.4 03/13/2016 [facility] HEMATOLOGY Platelet 167 K/CMM 133 - 450 03/13/2016 [facility] HEMATOLOGY MCHC 31.0 g/dL 32.0 - 36.0 03/13/2016 [facility] HEMATOLOGY RDW 19.3 % 11.5 - 14.5 03/13/2016 [facility] HEMATOLOGY Hgb 20.2 g/dL 14.0 - 18.0 03/13/2016 Result Comment: Critical Result(s) called to EVELYN MCKEON at 03/13/2016 09:58_ by_YM. Read back OK. [facility] HEMATOLOGY Hct 65.2 % 42.0 - 54.0 03/13/2016 [facility] HEMATOLOGY MCH 26.6 pg 27.0 - 31.0 03/13/2016 [facility] HEMATOLOGY MCV 85.9 fL 80.0 - 94.0 03/13/2016 [facility] HEMATOLOGY WBC 4.7 K/CMM 3.7 - 10.4 03/13/2016 [facility] HEMATOLOGY RBC 7.58 M/CMM 4.70 - 6.10 03/13/2016 [facility] PARATHYROID PROFILE PTH Intact 52.9 pg/mL 11.1 - 79.5 03/13/2016 [facility] SPECIAL CHEMISTRY Hgb A1C null <=5.6 % 03/13/2016 [facility] Chest 2 views DX Chest 2 [...] Iman Mathews MD 03/13/16 10:04 FINAL REPORT [facility] Chest 2 views DX Chest 2 views DX CLINICAL HISTORY: Dizziness. : 1975. TECHNIQUE: PA and lateral views of the chest. Heart size is normal. No acute consolidation. No pleural effusion. IMPRESSION: 1. No active disease in the chest. 05/08/2015 - - Read by: Pako Cali MD Dictated Date/time: 05/08/15 15:33 Electronically Signed by: Pako Cali MD 05/08/15 15:34 FINAL REPORT [facility] CHEM PANEL eGFR 128 mL/min/1.73m2 02/07/2015 [...] should be multiplied by the estimated BMI. [facility] CHEM PANEL POC AGAP 19.0 meq/L 10.0 - 20.0 02/07/2015 [facility] CHEM PANEL POC Hematocrit 58.0 % 42.0 - 54.0 02/07/2015 [facility] CHEM PANEL POC Hemoglobin 19.7 g/dL 14.0 - 18.0 02/07/2015 [facility] CHEM PANEL POC Ion Ca 1.20 mMol/L 1.05 - 1.25 02/07/2015 [facility] CHEM PANEL POC Potassium 3.5 meq/L 3.5 - 5.1 02/07/2015 [facility] CHEM PANEL POC Sodium 139 meq/L 135 - 145 02/07/2015 [facility] CHEM PANEL POC Glucose 83 mg/dL 70 - 99 02/07/2015 [facility] CHEM PANEL POC Creatinine 0.6 mg/dL 0.5 - 1.4 02/07/2015 [facility] CHEM PANEL POC BUN 9 mg/dL 7 - 22 02/07/2015 [facility] CHEM PANEL POC Carbon Dioxide 34 mEq/dL 24 - 32 02/07/2015 [facility] CHEM PANEL POC Chloride 91 meq/L 95 - 109 02/07/2015 [facility] Vital Signs Vital Sign Value Date Comments Source BMI Calculated 44.4 05/13/2016 [facility] Height 175.26 cm 05/13/2016 [facility] Weight 136.364 05/13/2016 [facility] Respitory Rate 18 03/19/2016 [facility] Systolic (mm Hg) 103 03/19/2016 [facility] Diastolic (mm Hg) 63 03/19/2016 [facility] Temperature Oral (F) 98.0 F 03/19/2016 [facility] Heart Rate 66 03/19/2016 [facility] Respitory Rate 18 03/19/2016 [facility] Temperature Oral (F) 98.2 F 03/19/2016 [facility] Heart Rate 71 03/19/2016 [facility] Systolic (mm Hg) 98 03/19/2016 [facility] Diastolic (mm Hg) 60 03/19/2016 [facility] Temperature Oral (F) 98.1 F 03/19/2016 [facility] Heart Rate 71 03/19/2016 [facility] Respitory Rate 18 03/19/2016 [facility] Systolic (mm Hg) 117 03/19/2016 [facility] Diastolic (mm Hg) 70 03/19/2016 [facility] BMI Calculated 52.11 03/13/2016 [facility] Weight 155.455 03/13/2016 [facility] Height 172.72 cm 03/13/2016 [facility] Height 175.26 cm 02/07/2015 [facility] Weight 186.364 02/07/2015 [facility] BMI Calculated 60.67 02/07/2015 [facility] Encounters Location Location Details Encounter Type Encounter Number Reason For Visit Attending Provider ADM Date DC Date Status Source [facility] Bedded Outpatient [id number] Jose Luis Primomo 02/07/2015 02/07/2015 [id number]2016 [id number] [facility]2016 [facility] Outpatient [id number] [facility] 05/13/2016 05/14/2016 [facility] [id number] [facility] 05/13/2016 05/14/2016 [facility] [place] [id number] Procedures Procedure Code Date Perfomer Comments Source Tonsillectomy [id number] [facility] Tonsillectomy [id number] [facility] Tonsillectomy [id number] [facility]
--- NOTE | 2018-08-26 12:10 | Operative Report ---
DATE OF PROCEDURE: 08/26/2018 SURGEON: Bronson Amaya MD PREOPERATIVE DIAGNOSES: Biliary colic and cholelithiasis, status post gastric sleeve for morbid obesity. POSTOPERATIVE DIAGNOSES: Biliary colic and cholelithiasis and status post gastric sleeve for morbid obesity. PROCEDURE PERFORMED: Laparoscopic cholecystectomy. ANESTHESIA: General endotracheal. VICTIM WITNESS ADMINISTRATOR: ESTIMATED BLOOD LOSS: Minimal. DRAINS: None. COMPLICATION: None. INDICATION AND FINDINGS: The patient is a 43-year-old male who has been admitted for cholecystectomy because of symptomatic cholelithiasis. He has several attacks of right upper quadrant pain. Ultrasound revealed gallstone. CAT scan revealed no abnormality without any obstruction of the stomach, status post gastric banding. INTRAOPERATIVE FINDINGS: The patient had a stone impacted in the neck of the gallbladder. There was no duct dilatation. There were no other visible abnormalities DESCRIPTION OF PROCEDURE: With the patient lying on the operative table in the supine position after administration of general endotracheal anesthesia, he was prepped and draped for laparoscopic cholecystectomy. The procedure was begun by establishing the pneumoperitoneum in the umbilical site after stab wound was made in the location and saline drop test was performed and pneumoperitoneum was insufflated to 15 mmHg and then the 10-11 trocar placed in the location. Camera introduced. Under direct vision, we placed an 11 trocar also in the subxiphoid region and finally two lateral working ports 5 mm each. The gallbladder was easily identifiable. There were no any major adhesions in the right upper quadrant in the area of the stomach. We went ahead and then retracted the gallbladder cephalad using grasping forceps through two 5 mm trocars. The hepatoduodenal ligament began the dissection high in the neck of the gallbladder and there was some reaction and then we went ahead and identified the cystic duct and the cystic artery and then transected them as well as the common bile duct and transected the cystic duct and cystic artery between titanium clips and then we removed the gallbladder using electrocautery and then detached and removed the gallbladder easily through the umbilical port. After we did this, we closed the fascia using 0 Vicryl for the umbilical fascia, 3-0 Vicryl for the subcutaneous tissue in the location as well as the subxiphoid port and the skin of all the ports was closed using arcadio. 0.25% Marcaine with epinephrine was given as local block at the end of the case. The patient tolerated the procedure well and taken to recovery room stable. MD JUANA Salas/GEETHA /[id number]
[2018-08-26 13:25] VITALS: BP 107/64
== END | disposition home or self-care (01) ==
LOC: OR 07:09
PROVIDERS: ATTEND Surgery
DX: K80.10 Calculus of gallbladder with chronic cholecystitis without obstruction (principal); E66.01 Morbid (severe) obesity due to excess calories; I49.1 Atrial premature depolarization; Z98.84 Bariatric surgery status; Z01.810 Encounter for preprocedural cardiovascular examination; Z01.812 Encounter for preprocedural laboratory examination; Z68.31 Body mass index [BMI] 31.0-31.9, adult
CPT/HCPCS: 36415; 47562; 80053; 85025; 88304; 93005; C1766; J1100; J2001; J2250; J2405; J2704; J2765